=== PATIENT | male | born 1945 | race Caucasian/White ===

== ENCOUNTER 2022-12-07 19:57 | Inpatient (IN) | payer MEDICARE, SELFPAY ==
[2022-12-07 19:59] VITALS: BP 141/80; PULSE 105; RESP 20; TEMP 36.6; O2SAT 86; BMI 30.4
[2022-12-07 20:12] VITALS: BP 141/80; PULSE 100; RESP 27; O2SAT 93
--- NOTE | 2022-12-07 20:16 | CTR_ITS ---
PROCEDURE INFORMATION: Exam: CT Head Without Contrast Exam date and time: 12/07/2022 9:50 PM Age: 77 years old Clinical indication: Injury or trauma; Fall; Blunt trauma (contusions or hematomas); Additional info: Fall, head injury TECHNIQUE: Imaging protocol: Computed tomography of the head without contrast. Radiation optimization: All CT scans at this facility use at least one of these dose optimization techniques: automated exposure control; mA and/or kV adjustment per patient size (includes targeted exams where dose is matched to clinical indication); or iterative reconstruction. REPORTING DATA: Count of CT and Cardiac NM exams in prior 12 months: This patient has received 0 known CTs and 0 known cardiac nuclear medicine studies in the 12 months prior to the current study. COMPARISON: No relevant prior studies available. RADIATION DOSE METRICS: Total DLP (mGy-cm): 1237 FINDINGS: Brain: Normal. No hemorrhage. Unremarkable white matter. No mass effect. Cerebral ventricles: No ventriculomegaly. Paranasal sinuses: Visualized sinuses are unremarkable. No fluid levels. Mastoid air cells: Visualized mastoid air cells are well aerated. Bones/joints: Unremarkable. No acute fracture. Soft tissues: Unremarkable. CT/CT head wo con* [id number] IMPRESSION: No acute intracranial abnormality.
--- NOTE | 2022-12-07 20:16 | CTR_ITS ---
PROCEDURE INFORMATION: Exam: CT Cervical Spine Without Contrast Exam date and time: 12/07/2022 9:50 PM Age: 77 years old Clinical indication: Injury or trauma; Fall; Blunt trauma TECHNIQUE: Imaging protocol: Computed tomography of the cervical spine without contrast. Radiation optimization: All CT scans at this facility use at least one of these dose optimization techniques: automated exposure control; mA and/or kV adjustment per patient size (includes targeted exams where dose is matched to clinical indication); or iterative reconstruction. REPORTING DATA: Count of CT and Cardiac NM exams in prior 12 months: This patient has received 0 known CTs and 0 known cardiac nuclear medicine studies in the 12 months prior to the current study. COMPARISON: CR (CHEST, ) 12/07/2022 8:34 PM RADIATION DOSE METRICS: Total DLP (mGy-cm): 279 FINDINGS: Bones/joints: No acute fracture. Normal alignment. No significant disc bulge or herniation. Multilevel degenerative changes are seen in the cervical spine, without significant spinal canal stenosis. Multilevel foraminal stenosis is present in the cervical spine. Lungs: Lung apices are normal. Soft tissues: Unremarkable. CT/CT cervical spin wo con* [id number] IMPRESSION: No acute findings.
--- NOTE | 2022-12-07 20:16 | ED_ITS ---
HPI - General Adult General: Chief complaint: General Medical Stated complaint: weakness, hypotension Time Seen by Provider: 12/07/22 20:07 History of Present Illness: 77-year-old male presents emergency department via air EMS with complaints of increased weakness and fatigue and accidental fall approximately 2 hours prior to arrival here in the emergency department. EMS personnel state that the patient does have multiple abrasions after he fell he did hit his head but there was no loss of consciousness reported. Family members who are present here in the emergency department with him states that he has been falling almost daily for the previous 3 days. The patient does have a history of malignant melanoma resection approximately 5 weeks ago at [facility]. He states that the melanoma was on his left lower back area. He denies neck pain but does complain of a 4 out of 10 headache. The patient has multiple abrasions to his forehead, lower lip, left forearm, and bilateral knees. He denies numbness or tingling to the extremities. He states nothing seems to make his headache better and nothing seems to make it worse. He denies nausea, or vomiting. Associated symptoms: Reports headache(s) and malaise Review of Systems General: Reports: 10 or more systems reviewed and unremarkable except in HPI and below Const: Reports: fatigue and malaise Skin/Breast: Reports: other (Multiple abrasions to his lower legs, forehead) Neuro: Reports: headache(s) Physical Exam Const: COMMON NORMALS: no acute distress, patient oriented x3 and alert HENMT: COMMON NORMALS: normocephalic and moist oral mucous membranes HEAD & SCALP: normocephalic and abrasion (Abrasions to the forehead, lower lip,) Eye: COMMON NORMALS: Equal, round and reactive pupils present, EOMs intact bilaterally and normal visual cristina by confrontation PUPIL: Yes Equal, round and reactive pupils present Neck/C-Spine: COMMON NORMALS: full ROM, no lymphadenopathy, supple and no m eningeal signs Chest: COMMONS NORMALS: normal inspection of the chest and normal palpation of entire chest wall Resp: COMMON NORMALS: normal respiratory effort and clear to auscultation bilaterally AUSCULTATION: clear to auscultation bilaterally Cardio: COMMON NORMALS: regular rate, S1 normal heart sound present, S2 normal heart sound present and Peripheral pulses 2+ throughout RATE: regular rate HEART SOUNDS: S1 normal heart sound present and S2 normal heart sound present PERIPHERAL PULSES: Peripheral pulses 2+ throughout GI: COMMON NORMALS: Normal to inspection, nondistended, normoactive bowel sounds present, Soft to palpation and non-tender PALPATION: Yes Soft to palpation Back/Pelvis: THORACIC SPINE/UPPER BACK: Yes normal to inspection and Yes thoracic ROM normal OTHER: Left lower back with dressing in place postoperative healing wound noted Extremity: RIGHT LOWER EXTREMITY: Yes lower leg Right lower leg: Yes inspection (Multiple abrasions to the anterior aspect of the right lower leg) LEFT LOWER EXTREMITY: Yes lower leg (Multiple abrasions to the left lower leg anterior aspect) Neuro: JAN COMA SCALE: document GCS findings Jan coma scale eye opening: Spontaneous Jan coma scale verbal response: Orientated [place] coma scale motor response: Obey commands [place] coma scale total score: 15 COMMON NORMALS: patient oriented x3 SENSORIUM/ORIENTATION: Yes alert MENINGEAL SIGNS: Yes no meningeal signs CRANIAL NERVES: Yes CN normal except as noted Skin: TRAUMA: abrasion (Anterior lower leg both right and left with multiple superficial abrasions,) Course Reevaluation(s): Reevaluation #1: Given the patient's elevated white blood cell count and lactic acid level we will request admission to the hospital physician for additional evaluation treatment and care. I did review patient's radiographic examination with the patient and the family and also discussed need for admission to the hospital for additional evaluation and treatment. Both the patient and the family did appear to be in agreement. Time: 23:06 Vital Signs: Vital signs: Vital Signs Temperature 97.9 F 12/07/22 19:59 Pulse Rate 93 12/07/22 20:47 Respiratory Rate 15 12/07/22 20:47 Blood Pressure 121/70 12/07/22 20:47 Pulse Oximetry 92 12/07/22 20:47 Oxygen Delivery Me thod Nasal Cannula 12/07/22 20:47 Oxygen Flow Rate 3 12/07/22 20:47 MDM - General Adult Medical Decision Making Physical exam completed and documented, I will obtain a CBC, CMP, cardiac enzymes as well as an EKG. Given his increased recent falls and his history of malignant melanoma I am concerned for metastasis we will obtain a CT scan of his head and due to the recent fall with trauma to his forehead and complaints of a headache we will obtain a CT cervical spine. My concern is that the patient may have metastatic disease versus a intracranial hemorrhage secondary to trauma. Differential Diagnosis Metastatic disease, intracranial hemorrhage, electrolyte abnormality, Medical Records I reviewed the patient's medical records. Lab Data I reviewed the patient's lab results. 12/07/22 19:00 12/07/22 19:00 Radiology Impressions Cervical Spine CT 12/07/22 20:16 IMPRESSION: No acute findings. Chest X-Ray 12/07/22:16 IMPRESSION: Mild asymmetric right lower lung zone opacification may represent atelectasis or scarring. Could also represent contusion or possibly developing pneumonia. Head CT 12/07/22:16 IMPRESSION: No acute intracranial abnormality. Laboratory Results WBC 40.48 10^3/uL (3.29-11.43) H* 12/07/22 19:00 RBC 4.37 10^6/uL (3.85-5.65) 12/07/22 19:00 Hgb 13.50 g/dL (11.27-16.99) 12/07/22 19:00 Hct 41.9 % (37-53) 12/07/22 19:00 MCV 95.9 fl (82-101) 12/07/22 19:00 MCH 30.9 pg (27-33) 12/07/22 19:00 MCHC 32.2 g/dL (30-55) 12/07/22 19:00 RDW 12.4 % (12.1-15.1) 12/07/22 19:00 Plt Count 46 10^3/cmm (157-399) L 12/07/22 19:00 MPV 11.5 fL (7.4-10.4) H 12/07/22 19:00 Lymph % (Auto) Not Reportable 12/07/22 19:00 [place] % (Auto) Not Reportable 12/07/22 19:00 Lymph # (Auto) Not Reportable 12/07/22 19:00 [place] # (Auto) Not Reportable 12/07/22 19:00 Total Counted 100 (0-100) 12/07/22 19:00 Atypical Lymphs % Not Reportable 12/07/22 19:00 Segmented Neutrophils 33 % 12/07/22 19:00 Abs Segm Neuts (Man) 13.4 10/cmm (1.6-7.1) H 12/07/22 19:00 Band Neutrophils Not Reportable 12/07/22 19:00 Absolute Lymphocytes 25.9 10^3/cmm (1.2-3.4) H 12/07/22 19:00 Lymphocytes (Manual) 63 % 12/07/22 19:00 Monocytes (Manual) 0.0 % 12/07/22 19:00 Absolute Monocytes 0.0 10^3/cmm (0.1-0.6) L 12/07/22 19:00 Eosinophils (Manual) 0 % 12/07/22 19:00 Absolute Eosinophils 0.0 10^3/cmm (0.0-0.7) 12/07/22 19:00 Basophils (Manual) 0.0 % 12/07/22 19:00 Absolute Basophils 0.0 10^3/cmm (0.0-0.2) 12/07/22 19:00 Myelocytes 2.0 % 12/07/22 19:00 Promyelocytes 1.0 % 12/07/22 19:00 Nucleated RBCs 1.0 /100WBC (0-1) 12/07/22 19:00 Smudge Cells 2+ H 12/07/22 19:00 Platelet Estimate Decreased (Normal) 12/07/22 19:00 PT 14.30 SECONDS (12.1-14.9) 12/07/22 19:00 INR 1.08 (0.8-1.2) 12/07/22 19:00 APTT 25.0 SECONDS (23.9-36.7) 12/07/22 19:00 Sodium 133 mmol/L (136-145) L 12/07/22 19:00 Potassium 4.1 mmol/L (3.5-5.1) 12/07/22 19:00 Chloride 90 mmol/L (98-107) L 12/07/22 19:00 Carbon Dioxide 17 mmol/L (22-29) L 12/07/22 19:00 Anion Gap 30.1 (5-19) H 12/07/22 19:00 BUN 30 mg/dL (8-23) H 12/07/22 19:00 Creatinine 1.3 mg/dL (0.7-1.2) H 12/07/22 19:00 GFR Calculation Not Reportable 12/07/22 19:00 Glucose 196 mg/dL (65-115) H 12/07/22 19:00 POC Glucose 133 mg/dL (70-110) H 12/07/22 20:43 Calculated Osmolality 288 mOsm/kg (285-295) 12/07/22 19:00 Lactic Acid 5.1 mmol/L (0.5-2.2) H* 12/07/22 20:05 Calcium 11.5 mg/dL (8.5-10.5) H 12/07/22 19:00 Magnesium 3.1 mg/dL (1.7-2.3) H 12/07/22 19:00 Total Bilirubin 0.5 mg/dL (0.15-1.2) 12/07/22 19:00 AST 81 U/L (0-40) H 12/07/22 19:00 ALT 26 U/L (0-41) 12/07/22 19:00 Alkaline Phosphatase 276 U/L (40-130) H 12/07/22 19:00 Troponin T Baseline 256 ng/L (0-15) H* 12/07/22 19:00 Troponin T 120 Minute 211.3 ng/L (0-15) H 12/07/22 22:31 Delta Troponin T -44.7 ABS# (0-10) L 12/07/22 22:31 Total Protein 6.4 g/dL (6.6-8.7) L 12/07/22 19:00 Albumin 2.9 g/dL (3.5-5.2) L 12/07/22 19:00 Globulin 3.5 g/dL (1.3-4.6) 12/07/22 19:00 Urine Color Yellow (Yellow) 12/07/22 22:10 Urine Appearance Sl hazy (CLEAR) A 12/07/22 22:10 Urine pH 5 (5-7) 12/07/22 22:10 Ur Specific [place] 1.020 (1.005-1.030) 12/07/22 22:10 Urine Protein 1+ (Negative) H 12/07/22 22:10 Urine Glucose (UA) Norm (Normal) 12/07/22 22:10 Urine Ketones 1+ (Negative) H 12/07/22 22:10 Urine Blood 3+ (Negative) H 12/07/22 22:10 Urine Nitrate Negative (Negative) 12/07/22 22:10 Urine Bilirubin Neg (Negative) 12/07/22 22:10 Urine Urobilinogen Neg mg/dL (Negative) 12/07/22 22:10 Ur Leukocyte Esterase Negative (Negative) 12/07/22 22:10 Urine RBC 5-10 /hpf (0-2) H 12/07/22 22:10 Urine WBC 0-4 /hpf (0-5) H 12/07/22 22:10 Ur Squamous Epith Cells None /hpf (0-5) 12/07/22 22:10 Ur Transition Epith Cell 0-4 /hpf 12/07/22 22:10 Amorphous Sediment 1+ /hpf 12/07/22 22:10 Urine Bacteria Trace /hpf (NONE) 12/07/22 22:10 Hyaline Casts 0-4 /lpf H 12/07/22 22:10 Urine Mucus 2+ /hpf 12/07/22 22:10 Urine Opiates Screen Negative ng/mL (Negative) 12/07/22 22:10 Ur Barbiturates Screen Negative ng/mL (Negative) 12/07/22 22:10 Ur Phencyclidine Scrn Negative ng/mL (Negative) 12/07/22 22:10 Ur Amphetamines Screen Negative ng/mL (Negative) 12/07/22 22:10 U Benzodiazepines Scrn Negative ng/mL (Negative) 12/07/22 22:10 Urine Cocaine Screen Negative ng/mL (Negative) 12/07/22 22:10 U Marijuana (THC) Screen Negative ng/mL (Negative) 12/07/22 22:10 All radiology interpretation(s) finalized by discharge EKG Data Twelve-lead EKG was obtained at 2219 and reviewed at 2221 which demonstrated sinus rhythm with occasional PAC. There is no ST elevation or depression to demonstrate acute ischemia or infarction at present. Ventricular rate is 96, ME interval is 148, QRS duration is 94, QT 369, QTc 423.: Computer generated interpretation: Cervical Spine CT 12/07/22 20:16 IMPRESSION: No acute findings. Chest X-Ray 12/07/22 20:16 IMPRESSION: Mild asymmetric right lower lung zone opacification may represent atelectasis or scarring. Could also represent contusion or possibly developing pneumonia. Head CT 12/07/22 20:16 IMPRESSION: No acute intracranial abnormality. Critical Care Time Critical Care Time: Critical Care Time: Yes Total Critical Care Time: 90 Attestation: This case had a high probability of a clinically significant, sudden, or life threatening deterioration of this patient's condition which required my full and direct attention, intervention and personal management. 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
--- NOTE | 2022-12-07 20:16 | XRR_ITS ---
PROCEDURE INFORMATION: Exam: XR Chest Exam date and time: 12/07/2022 8:34 PM Age: 77 years old Clinical indication: Other: Weakness; Additional info: Weakness/fall TECHNIQUE: Imaging protocol: Radiologic exam of the chest. Views: 1 view. COMPARISON: No relevant prior studies available. FINDINGS: Lungs: Mild linear atelectasis versus scarring in the left lung base. Subtle asymmetric patchy linear right lower lung zone opacification. Pleural spaces: No substantial pleural effusion or pneumothorax. Heart/Mediastinum: Unremarkable. No cardiomegaly. Bones/joints: Mild degenerative changes along the spine and shoulders. XR/XR chest 1V portable [id number] IMPRESSION: Mild asymmetric right lower lung zone opacification may represent atelectasis or scarring. Could also represent contusion or possibly developing pneumonia.
[2022-12-07 20:25] VITALS: BP 130/69; PULSE 96; RESP 20; O2SAT 92
[2022-12-07] MEDS: neomycin-poly-bacitracin oint 28 gm 1 APPLIC TOPICAL (20:27)
[2022-12-07 20:39] LABS: Hematocrit 41.9 % (37-53); Mean Corpuscular HGB Conc 32.2 g/dL (30-55); Mean Corpuscular Hemoglobin 30.9 pg (27-33); Mean Corpuscular Volume 95.9 fl (82-101); Mean Platelet Volume 11.5 fL (7.4-10.4); Platelet Count 46 10^3/cmm (157-399); Red Blood Count 4.37 10^6/uL (3.85-5.65); Red Cell Distribution Width 12.4 % (12.1-15.1)
[2022-12-07 20:43] LABS: INR 1.08 (0.8-1.2)
[2022-12-07 20:47] VITALS: BP 121/70; PULSE 93; RESP 15; O2SAT 92
[2022-12-07 20:47] LABS: Glucose Point of Care 133 mg/dL (70-110)
[2022-12-07 20:59] LABS: Alanine Aminotransferase 26 U/L (0-41); Albumin Level 2.9 g/dL (3.5-5.2); Alkaline Phosphatase 276 U/L (40-130); Blood Urea Nitrogen 30 mg/dL (8-23); Calcium 11.5 mg/dL (8.5-10.5); Carbon Dioxide 17 mmol/L (22-29); Chloride 90 mmol/L (98-107); Globulin 3.5 g/dL (1.3-4.6); Glucose 196 mg/dL (65-115); Magnesium 3.1 mg/dL (1.7-2.3); Osmolality Calculated 288 mOsm/kg (285-295); Sodium 133 mmol/L (136-145); Total Bilirubin 0.5 mg/dL (0.15-1.2); Total Protein 6.4 g/dL (6.6-8.7)
[2022-12-07 21:00] LABS: Troponin(5th) Baseline 256 ng/L (0-15)
[2022-12-07 21:02] LABS: Anion Gap 30.1 (5-19); Aspartate Amino Transferase 81 U/L (0-40); Potassium 4.1 mmol/L (3.5-5.1)
[2022-12-07 21:50] LABS: Slide Review Slide Review Perform
[2022-12-07 21:52] LABS: Platelet Estimate Decreased (Normal); Total Cells Counted 100 (0-100); White Blood Count 40.48 10^3/uL (3.29-11.43)
[2022-12-07 21:59] LABS: Absolute Segmented Neutrophil 13.4 10/cmm (1.6-7.1); Eosinophils 0 %; Lymphocytes 63 %; Lymphocytes Absolute 25.9 10^3/cmm (1.2-3.4); Segmented Neutrophils 33 %
[2022-12-07 22:01] LABS: Smudge Cells 2+
--- NOTE | 2022-12-07 22:11 | ECG_ITS ---
[facility] Test Date: 2022-12-07 Pat Name: Esteban Villalobos Department: Room: Gender: Male [employer]: : 1945 Requested By: Milad Smith Order Number: [id number] Lowell MD: Brittanie Carrizales M.D. Measurements Intervals [place] Rate: 94 P: 1 LA: 137 QRS: 73 QRSD: 110 T: 68 QT: 371 QTc: 465 Interpretive Statements SINUS RHYTHM WITH MARKED SINUS ARRHYTHMIA No previous ECG available for comparison Electronically Signed On 12-08-2022 19:34:04 CDT by Brittanie Carrizales M.D. [id number] f
--- NOTE | 2022-12-07 22:19 | ECG_ITS ---
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 Measurements Intervals [place] Rate: 96 P: 26 DE: 148 QRS: 78 QRSD: 94 T: 71 QT: 369 QTc: 467 Interpretive Statements SINUS RHYTHM WITH OCCASIONAL SUPRAVENTRICULAR PREMATURE COMPLEXES Compared to ECG 12/07/2022 21:01:12 Sinus arrhythmia no longer present Electronically Signed On 12-08-2022 19:42:17 CDT by Brtitanie Carrizales M.D. [id number]
[2022-12-07 22:26] LABS: Add Urine Microscopic? YES; Amorphous Sediment Urine 1+ /hpf; Bacteria Urine TRACE /hpf; Bilirubin Urine Neg (Negative); Blood Urine 3+ (Negative); Glucose Urine UA Norm (Normal); Hyaline Casts Urine 0-4 /lpf; Ketones Urine 1+ (Negative); Leukocyte Esterase Urine Negative (Negative); Mucus Urine 2+ /hpf; Nitrate Urine Negative (Negative); Protein Urine 1+ (Negative); Transitional Epi Cells Urine 0-4 /hpf; Urine Appearance SL Hazy (CLEAR); Urine Color Yellow (Yellow); Urobilinogen Urine Neg (Negative); WBC Urine 0-4 /hpf (0-5); pH Urine 5 (5-7)
[2022-12-07 22:27] LABS: Add Urine Culture? No
[2022-12-07 22:30] LABS: Amphetamines Screen Urine Negative (Negative); Barbiturates Screen Urine Negative (Negative); Benzodiazepines Screen Urine Negative (Negative); Cocaine Screen Urine Negative (Negative); Opiate Screen Urine Negative (Negative); PCP Screen Urine Negative (Negative); THC Screen Urine Negative (Negative)
[2022-12-07 22:41] LABS: Lactic Sepsis W/Reflex 5.1 mmol/L (0.5-2.2)
[2022-12-07 23:07] LABS: Troponin 5 2HR 211.3 ng/L (0-15)
[2022-12-07 23:26] LABS: Prolactin 15.45 ng/mL (4.0-15.2)
[2022-12-07] MEDS: sodium chloride 0.9% 1,000 ML 999 ML IV (23:36)
[2022-12-07] MEDS: piperacillin-tazobactam 3.375 GM in sodium chloride 0.9% (plus) 50 ML IV (23:37)
[2022-12-07 23:38] VITALS: BP 135/99; PULSE 103; RESP 24; O2SAT 93
[2022-12-08] VITALS (99 sets, daily range): BP systolic 107–151; BP diastolic 65–87; PULSE 98–116; RESP 15–54; TEMP 36.9–37.2; O2SAT 81–96
[2022-12-08 00:03] LABS: Reflex Lactate Order REFLEX LACTIC ORDERD
--- NOTE | 2022-12-08 01:59 | P.HP_ITS ---
Providers/Chief Complaint Admitting Physician: Shirlene Lewis MD Primary Care Provider: Leobardo Blanco Chief Complaint: weakness, hypotension History of Present Illness Esteban Villalobos is a 77 year old male with history of hypertension left lower lateral back melanoma s/p surgery 1 week ago was brought in by family for fall. He has a history of similar mechanical fall 1 week ago. He denies any dizziness chest pain cold cough shortness of breath bowel or urinary complaints prior to fall.. He reports he was working in the front yard and suddenly lost balance and fell. He did not hit his head. He could not get up and tried to crawl back into the house during which he received few lacerations on bilateral knees. He denies feeling dizzy or abnormal pre or post episode. He recently had excisional surgery for melanoma 1 week ago and was given Percocet for pain control. He reports Percocet made him feel nauseous and loss of appetite, also he has not been drinking enough water recently. He was having nonproductive cough for last few days but no fever or cold. Review of Systems Narrative: As per HPI Medications/Allergies Home Medications Medication Instructions Recorded Confirmed Last Taken Type aspirin 81 mg tablet,delayed mg 12/07/22 Unknown History release losartan 12/07/22 Unknown History Allergies Allergy/AdvReac Type Severity Reaction Status Date / Time hydrocodone Allergy Unknown Verified 12/07/22 20:07 Vitals/I&O/Wt Last Vital Signs Temp 97.9 F 12/07/22 19:59 Pulse 104 H 12/08/22 00:21 Resp 24 H 12/08/22 00:21 BP 107/67 12/08/22 00:21 Pulse Ox 93 12/08/22 00:21 O2 Del Method Nasal Cannula 12/08/22 01:05 O2 Flow Rate 3 12/08/22 00:21 12/07/22 12/07/22 12/08/22 14:59 22:59 06:59 Intake Total 1050 / 1050 Balance 1050 / 1050 Weight last 48 hrs Weight 96.162 kg Physical Exam Narrative: He is alert awake oriented x3 pleasant and cooperative not in acute distress Chest bilaterally diffuse wheezing present no rhonchi or crackles Cardiovascular normal heart sounds no murmur Abdomen soft nontender nondistended normal bowel sounds Extremities 1+ pitting bilateral lower extremity edema present. Skin superficial laceration seen some bilaterally, surgical site on the left lower back seen, 2.5 x 2.5 cm ulcer present packed with gauze. No active signs of infection or drainage. Data 12/08/22 02:18 12/08/22 02:18 Micro: Microbiology 12/07/22 22:36 Blood Culture - Preliminary Blood SPECIMEN COLLECTED 12/07/22 22:31 Blood Culture - Preliminary Blood SPECIMEN COLLECTED CXR: Radiologist's impression: 54 year old female morbidly obese with history of severe asthma, possible sleep apnea, bilateral lower extremity lymphedema presented with complaint of shortness of breath chest pain and cough productive of dark green sputum mixed with blood. Other CT: My impression: No acute findings CT Head: Radiologist's impression: No acute intracranial findings EKG 1: My Interpretation: Normal sinus rhythm No acute ST-T changes EKG 2: My Interpretation: Sinus arrhythmia but no acute ST-T changes A&P Assessment and plan (1) Fall: (2) Acute renal failure: (3) Hyponatremia: (4) Generalized weakness: (5) Acute bronchitis: (6) Sepsis: (7) Elevated troponin: Plan 77 year old male with history of hypertension left lower lateral back melanoma s/p surgery 1 week ago was brought in by family for mechanical fall and found to have hyponatremia with sodium of 133 leukocytosis with left shift 40 lactic acid 5.1 acute renal failure and elevated troponins and hypoxia Fall secondary to generalized weakness and dehydration We will do IV fluids at normal saline 75 mll per hour PT eval in a.m. hypoxia and wheezing secondary to acute bronchitis secondary to flulike symptoms DuoNebs every 8 hours Continue supplemental oxygen to keep saturation more than 90 IV ceftriaxone 1 g daily IV azithromycin 500 mg daily IV fluids normal saline at 75 mL/h elevated troponins likely secondary to stress, trending down, will monitor for now Check 2D echo in a.m. Hyponatremia acute renal failure secondary to dehydration we will continue with IV fluids Resume losartan 50 mg daily for hypertension Resume p.o. aspirin 81 mg daily IV Pepcid 20 mg twice a day for stress ulcer prophylaxis Subcutaneous Lovenox 40 mg daily for DVT prophylaxis He is full code as per discussion with the patient and family. Attestations Medical Necessity Statement*: He needs more than 2 days of continued hospitalization for management of brian kocytosis of unknown etiology generalized weakness and fall. Time Spent in Patient Care: 30 minutes Coding Level of Care Code Acute Code for Chg Fwd Diagnoses Fall W19.XXXA Acute renal failure N17.9 Hyponatremia E87.1 Generalized weakness R53.1 Acute bronchitis J20.9 Sepsis A41.9 Elevated troponin R79.89 Time Spent (min) 30
--- NOTE | 2022-12-08 02:11 | ECG_ITS ---
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 Measurements Intervals [place] Rate: 101 P: 0 [place]: 0 QRS: 82 QRSD: 94 T: 36 QT: 343 QTc: 446 Interpretive Statements Multifocal atrial tachycardia ABNORMAL RHYTHM ECG Compared to ECG 12/07/2022 22:19:30 Sinus rhythm no longer present Electronically Signed On 12-08-2022 19:43:46 CDT by Brittanie Carrizales M.D. [id number]
[2022-12-08] MEDS: famotidine 20 mg/2 mL INJ IVP ×2 (02:43→14:50)
[2022-12-08] MEDS: enoxaparin 40 mg/0.4 mL Syringe SUBCUT (02:44)
[2022-12-08] MEDS: cefTRIAXone 1,000 MG in sodium chloride 0.9% (plus) 50 ML 100 MG IV (02:44)
[2022-12-08] MEDS: azithromycin 500 MG in sodium chloride 0.9% 250 ML 250 MG IV (02:44)
[2022-12-08] MEDS: sodium chloride 0.9% 1,000 ML 75 ML IV ×2 (02:44→17:45)
[2022-12-08 02:46] LABS: Basophils # 0.1 10^3/uL (0.0-0.1); Basophils % 0.3 %; Eosinophils % 0.1 %; Lymphocytes # 30.2 10^3/uL (0.8-4.8); Lymphocytes % 83.6 %; Mean Corpuscular HGB Conc 32.9 g/dL (30-55); Mean Corpuscular Hemoglobin 30.9 pg (27-33); Mean Corpuscular Volume 94.1 fl (82-101); Mean Platelet Volume 10.4 fL (7.4-10.4); Monocytes # 0.5 10^3/uL (0.2-0.9); Monocytes % 1.3 %; Neutrophils # 4.54 10^3/uL (1.8-7.7); Neutrophils % 12.6 %; Nucleated Red Blood Cells # 0.2 /100WBC; Nucleated Red Blood Cells % 0.4 %; Platelet Count 38 10^3/cmm (157-399); Red Blood Count 4.04 10^6/uL (3.85-5.65); Red Cell Distribution Width 12.4 % (12.1-15.1)
[2022-12-08 03:22] LABS: Alanine Aminotransferase 29 U/L (0-41); Albumin Level 2.6 g/dL (3.5-5.2); Alkaline Phosphatase 282 U/L (40-130); Anion Gap 16.1 (5-19); Aspartate Amino Transferase 118 U/L (0-40); Blood Urea Nitrogen 30 mg/dL (8-23); Calcium 10.7 mg/dL (8.5-10.5); Carbon Dioxide 27 mmol/L (22-29); Chloride 97 mmol/L (98-107); Globulin 3.1 g/dL (1.3-4.6); Glucose 130 mg/dL (65-115); Magnesium 2.7 mg/dL (1.7-2.3); NT Pro B Type Natriuretic Pept 575 pg/mL (0-450); Osmolality Calculated 290 mOsm/kg (285-295); Phosphorus 4.8 mg/dL (2.5-4.5); Potassium 4.1 mmol/L (3.5-5.1); Sodium 136 mmol/L (136-145); Total Bilirubin 0.4 mg/dL (0.15-1.2); Total Protein 5.7 g/dL (6.6-8.7)
[2022-12-08 03:26] LABS: Troponin 5 6HR 211.9 ng/L (0-15)
--- NOTE | 2022-12-08 08:43 | USCV_ITS ---
Esteban Villalobos Age: 77 Gender: M : 1945 Exam Date: 12/08/2022 09:21 Ordering Phys: Stone Robins MD Technologist: MABEL Exam Location: [facility] [place] Indication: NSTEMI, CHF BP: 152 / 87 HR: 107 Rhythm: Sinus Technical Quality: Adequate MEASUREMENTS (Male / Female) Normal Values 2D ECHO LVOT Diameter 2.0 cm LV Ejection Fraction MOD 2C 54.8 % LV Ejection Fraction 2C AL 53.5 % LA Diameter 3.0 cm LA Width 3.3 cm LA Height 4.1 cm RA Width 2.6 cm RA Height 3.5 cm Aorta at Sinotubular Diameter 2.6 cm IVC Diameter 1.5 cm M-MODE Aortic Annulus Diameter 3.2 cm LA Ao Ratio MM 0.9 MV E Point Septal Separation 0.9 cm DOPPLER AV Peak Velocity 137.0 cm/s LVOT Peak Velocity 108.0 cm/s AV Area Cont Eq vti 2.7 cm squared AV Area Cont Eq pk 2.5 cm squared MV Peak Velocity 104.0 cm/s MV Area PHT 3.7 cm squared Mitral E to A Ratio 0.8 MV E' Velocity 38.5 cm/s Mitral E to MV E' Ratio 8.8 Mitral E to LV E' Lateral Ratio 8.9 Mitral E to LV E' Septal Ratio 8.8 TR Peak Velocity 151.0 cm/s TR Peak Gradient 9.1 mmHg TR Mean Velocity 107.0 cm/s TR Mean Gradient 5.4 mmHg TR Velocity Time Integral 29.0 cm TV Peak E Velocity 30.0 cm/s Right Atrial Pressure 3.0 mmHg Pulmonary Artery Systolic Pressu 12.1 mmHg PV Peak Velocity 152.0 cm/s RV Acceleration Time 0.1 s RV Ejection Time 0.2 s RV AcT/ET 0.7 FINDINGS Left Ventricle Normal left ventricular size and systolic function, EF 59 %. No regional wall motion abnormalities. Grade I/IV diastolic dysfunction (abnormal relaxation filling pattern), normal to mildly elevated filling pressures. Right Ventricle The right ventricle is normal in size and function. Right Atrium The right atrium is normal in size. Left Atrium Mildly increased left atrial size. Mitral Valve No gross abnormalities noted Aortic Valve Thickened aortic valve. Trace aortic valve regurgitation. Tricuspid Valve Trace tricuspid valve regurgitation. Estimated pulmonary artery peak systolic pressure within normal limit Pulmonic Valve Pulmonic valve not well visualized. Pericardium No pericardial effusion. Aorta Normal ascending aorta dimension. IVC Inferior vena cava not visualized. CONCLUSIONS Normal left ventricular size and systolic function, EF 59 %. No regional wall motion abnormalities. Grade I/IV diastolic dysfunction (abnormal relaxation filling pattern), normal to mildly elevated filling pressures. Thickened aortic valve. Trace aortic valve regurgitation. Trace tricuspid valve regurgitation. Estimated pulmonary artery peak systolic pressure within normal limit There is no pericardial effusion. There are no intracardiac masses. No previous study is available for comparison. Dr Brittanie Carrizales MD FAC (Electronically Signed) Final Date: 08 December 2022 11:13 S
--- NOTE | 2022-12-08 09:01 | P.PN_ITS ---
Subjective Subjective: Admitted overnight. H&P and labs appreciated. Seen with family at bedside. This is a 77-year-old gentleman with past medical history of hypertension, CLL on expectant treatment who recently underwent wide excision of melanoma from his back at [facility] within the last 2 weeks presents to the ER after sustaining a fall. As per the patient he has been having almost daily falls for last 1 week. Falls were not preceded or followed by any aura, denies any nausea vomiting, chest pressure, chest pain along the symptoms, any seizure-like activity. Denies having any similar episodes in the past. Yesterday he was mowing his lawn when he thinks he tripped. On examination patient is laying comfortably in bed, currently on 6 L saturating 90%, tachycardic, complaining of mild shortness of breath. Denies any nausea vomiting, headache. Blood work appreciated for a white count 26,000, stable hemoglobin, platelet count 38,000, CMP showing creatinine of 1.1, sodium of 136, calcium of 10.7, phosphorus 4.8, magnesium of 2.7, troponin baseline at 256 with a delta of -44 and 6 hours Vitals/I&O/Wt Last Vital Signs Temp 98.9 F 12/08/22 04:00 Pulse 104 H 12/08/22 08:41 Resp 16 12/08/22 08:41 BP 117/77 12/08/22 04:00 Pulse Ox 91 12/08/22 08:41 O2 Del Method Nasal Cannula 12/08/22 08:41 O2 Flow Rate 6 12/08/22 08:41 12/07/22 12/08/22 12/08/22 22:59 06:59 14:59 Intake Total 1350 / 1350 Balance 1350 / 1350 Weight last 48 hrs Weight 96.162 kg Physical Exam Narrative: General: No acute distress, AO x3, drowsy, NC oxygen supplementation HEENT: PERRLA, pupils bilaterally equal and reactive, old traumatic dried blood on lower lip Chest: Bilateral normal vesicular breath sounds all over lung cristina with coarse crackles bilaterally in lower zone CVS: S1-S2 regular, no murmurs, no tachycardia, no gallops, no rubs Abdomen: Soft, nontender, no organomegaly, bowel sounds present, morbidly obese Neuro: No focal deficits, no facial deformity, AO x3, power 5/5 in all limbs lateral normal vesicular breath sounds over lung cristina Skin: OTHER: Data 12/08/22 02:18 12/08/22 02:18 Micro: Microbiology 12/07/22 22:36 Blood Culture - Preliminary Blood SPECIMEN COLLECTED 12/07/22 22:31 Blood Culture - Preliminary Blood SPECIMEN COLLECTED A&P Assessment and plan (1) Syncope and collapse: (2) Acute kidney insufficiency: (3) Hyponatremia: (4) Sepsis: (5) Elevated troponin: (6) Pulmonary embolism: (7) CLL (chronic lymphocytic leukemia): (8) Goals of care, counseling/discussion: (9) Hypertension: Plan 77-year-old gentleman with past medical history of CLL, excision of melanoma of back presents to the hospital with recurrent falls secondary to syncope and collapse over last 1 week. Syncope and collapse: Patient is tachycardic, on new oxygen supplementation going up to 6 L, positive troponins with a negative delta on admission. Check D-dimer. For now we will hold off on CTA until his D-dimer is elevated gi aixa resolving KATY. Empirically start on full dose Lovenox 1 mg/kg body weight every 12 hourly. Orthostatic blood pressures. PT evaluation. Hypoxia: Most likely in setting of a possible PE. Pneumonia is likely as well. Check respiratory viral panel, sputum culture. Antibiotic as below. Sepsis: Present on admission. Ruled in with tachycardia, leukocytosis, target organ dysfunction with KATY and hyponatremia. Follow-up blood culture, check MRSA swab. For now continue with IV ceftriaxone and azithromycin. Wound care as per outpatient directions. Continue with triple antibiotic ointment. KATY: Resolving. Most likely in setting of dehydration along with losartan at home dose. Medical reconstruction done for nephrotoxic drugs. Hold off on losartan for now. Monitor BMP daily. High anion gap metabolic acidosis/hyponatremia: Most likely in setting of KATY. Resolved. Monitor daily. Elevated troponin: Await echocardiogram results. Already on full dose Lovenox for possible PE. Check A1c, lipid panel. We will plan for further treatment as per the results. CLL: On review of labs from outpatient. It seems patient's baseline white count is around 19,000. Currently 36,000. Continue to monitor. Will ask patient to follow-up with his outpatient oncologist. Thrombocytopenia: Most likely in setting of baseline CLL. Patient is on full dose Lovenox for high concerns for PE causing syncope and collapse. We will have to monitor closely for any bleeding diathesis. CODE STATUS: Discussed in detail with patient at bedside. Daughters will be the DPOA. For now he would want to have chest compressions if needed but does not want ventilator. Changed to limited resuscitation. Full dose Lovenox will suffice as DVT prophylaxis Famotidine for PUD prophylaxis Regular diet Attestations Medical Necessity Statement*: Requires further hospitalization for management and further evaluation of syncop e and collapse, hypoxia with concerns for sepsis, resolving KATY with concerns for pulmonary embolism Coding Level of Care Code 32692 High MDM includes number and complexity of problems actively addressed during encounter, amount and/or complexity of data reviewed/ordered (Reviewing outpatient labs for last 6 months, ordering tests, goals of care discussion with family) [ previous or external records, resulted lab(s)/test(s), ordered lab(s)/test(s), independent historian, independent test interpretation and other healthcare professional discussion] and described risk of complication, morbidity or mortality of management as documented Diagnoses Syncope and collapse R55 Acute kidney insufficiency N28.9 Hyponatremia E87.1 Sepsis A41.9 Elevated troponin R79.89 Pulmonary embolism I26.99 CLL (chronic lymphocytic leukemia) C91.10 Goals of care, counseling/discussion Z71.89 Hypertension I10
[2022-12-08 09:29] LABS: Thyroid Stimulating Hormone 0.91 uIU/mL (0.27-4.20)
[2022-12-08 09:36] LABS: Vitamin B12 481 pg/mL (232-1245)
[2022-12-08 09:37] LABS: D Dimer >= 20.00 ug/mLFEU (0-0.59)
[2022-12-08 09:47] LABS: Iron 105 ug/dL (59-158); Percent Saturation 56.1 % (20-50); Total Iron Binding Capacity 187 mcg/dl; Unsaturated Iron Binding 82 ug/dL (112-347)
[2022-12-08 10:09] LABS: LAB Peripheral Smear Sent for Review
[2022-12-08] MEDS: aspirin 81 mg EC Tablet PO (10:14)
[2022-12-08] MEDS: enoxaparin 100 mg/mL Syringe SUBCUT (10:14)
--- NOTE | 2022-12-08 11:40 | CT_ITS ---
WS: [id number] CTA OF THE CHEST WITH PULMONARY EMBOLISM PROTOCOL TECHNIQUE: High-resolution contrast enhanced CTA of the chest with coronal and sagittal reformatted i mages with pulmonary embolism protocol. MIP images are also reviewed. CLINICAL INFORMATION: Possible pe COMPARISON: None. DLP: 479.[address] scans at [facility] use at least one of these dose optimization techniques: automated e xposure control; mA and/or kV adjustment per patient size (includes targeted exams where dose is matc hed to clinical indication); or iterative reconstruction. FINDINGS: Proximal pulmonary arteries are normal. Multiple filling defects in the LEFT upper lobe segmental and subsegmental pulmonary arteries. Additional filling defects in the LEFT lower lobe and RIGHT lower l obe segmental and subsegmental pulmonary arteries compatible with acute pulmonary embolus. No signifi cant RIGHT heart strain. Normal caliber thoracic aorta. Coronary calcification. Tiny bilateral pleural effusions. Compressive atelectasis in the lung bases. Mild chronic emphysematous changes. A few nonspecific noncalcified nodules in the RIGHT upper lobe the largest measuring 7 mm. Subpleural opacity LEFT upper lobe at the lung apex. Moderate thoracic kyphosis with ankylosis thoracic spine. IMPRESSION: 1. Multiple filling defects in the segmental and subsegmental pulmonary arteries described above com patible with pulmonary embolus. 2. No significant RIGHT heart strain. 3. Tiny bilateral pleural effusions with compressive atelectasis in the lung bases. 4. Few noncalcified and subpleural nodules in the RIGHT upper lobe largest measuring 7 mm. Recommend 6-month chest CT follow-up. Notified Stone Robins MD at 12/08/2022 12:59 PM.
[2022-12-08] MEDS: iohexol 350 mg/mL 500 mL Btl (per mL) IV (12:09)
[2022-12-08] MEDS: ipratropium-albuterol 3 mL Neb INHALATION ×2 (13:30→20:43)
--- NOTE | 2022-12-08 13:48 | PC.NURSE ---
Pulmonary embolism noted on CT scan. Patient was given 100mg of Lovenox at 1014. Dr Robins instructed nurse to start heparin drip 12 hours past lovenox injection, which will be at 1015pm. Nurse will let shift supervisor film processing know to start that drip.
[2022-12-08 14:49] LABS: Adenovirus Not Detected (NOT DETECT); Chlamydia Pneumoniae Not Detected (NOT DETECT); Coronavirus 229E,HKU1,NL63,OC4 Not Detected (NOT DETECT); Human Metapneumovirus Not Detected (NOT DETECT); Human Rhinovirus/Enterovirus Not Detected (NOT DETECT); Influenza A Not Detected (NOT DETECT); Influenza A H1 Not Detected (NOT DETECT); Influenza A H1-2009 Not Detected (NOT DETECT); Influenza A H3 Not Detected (NOT DETECT); Influenza B Not Detected (NOT DETECT); Mycoplasma Pneumoniae Not Detected (NOT DETECT); Parainfluenza Virus Type 1 Not Detected (NOT DETECT); Parainfluenza Virus Type 2 Not Detected (NOT DETECT); Parainfluenza Virus Type 3 Not Detected (NOT DETECT); Parainfluenza Virus Type 4 Not Detected (NOT DETECT); Respiratory Syncytial Virus A Not Detected (NOT DETECT); Respiratory Syncytial Virus B Not Detected (NOT DETECT); SARS-COV-2 Not Detected (NOT DETECT)
[2022-12-08] MEDS: heparin drip 25,000 UNIT/500 ML PREMIX 26.93 UNIT IV (22:31)
[2022-12-09] VITALS (15 sets, daily range): BP systolic 119–149; BP diastolic 74–95; PULSE 86–110; RESP 16–25; TEMP 37.4–38.6; O2SAT 90–95
[2022-12-09] MEDS: ipratropium-albuterol 3 mL Neb INHALATION ×4 (02:33→20:17)
[2022-12-09] MEDS: azithromycin 500 MG in sodium chloride 0.9% 250 ML 250 MG IV (02:48)
[2022-12-09] MEDS: famotidine 20 mg/2 mL INJ IVP ×2 (02:48→15:35)
[2022-12-09] MEDS: cefTRIAXone 1,000 MG in sodium chloride 0.9% (plus) 50 ML 100 MG IV (02:48)
[2022-12-09 04:32] LABS: Basophils # 0.1 10^3/uL (0.0-0.1); Basophils % 0.3 %; Eosinophils % 0.1 %; Hematocrit 35.5 % (37-53); Lymphocytes % 86.8 %; Mean Corpuscular HGB Conc 32.4 g/dL (30-55); Mean Corpuscular Hemoglobin 30.9 pg (27-33); Mean Corpuscular Volume 95.4 fl (82-101); Mean Platelet Volume 10.9 fL (7.4-10.4); Monocytes # 0.4 10^3/uL (0.2-0.9); Monocytes % 1.2 %; Neutrophils % 9.5 %; Nucleated Red Blood Cells # 0.2 /100WBC; Nucleated Red Blood Cells % 0.6 %; Positive C 1; Positive M 1; Red Blood Count 3.72 10^6/uL (3.85-5.65); Red Cell Distribution Width 12.6 % (12.1-15.1)
[2022-12-09 04:45] LABS: Partial Thromboplastin Time 49.5 SECONDS (23.9-36.7)
[2022-12-09 04:50] LABS: Alanine Aminotransferase 28 U/L (0-41); Albumin Level 2.2 g/dL (3.5-5.2); Alkaline Phosphatase 291 U/L (40-130); Anion Gap 14.2 (5-19); Aspartate Amino Transferase 112 U/L (0-40); Blood Urea Nitrogen 22 mg/dL (8-23); Calcium 10.8 mg/dL (8.5-10.5); Carbon Dioxide 28 mmol/L (22-29); Chloride 101 mmol/L (98-107); Globulin 3.6 g/dL (1.3-4.6); Glucose 141 mg/dL (65-115); Osmolality Calculated 294 mOsm/kg (285-295); Potassium 4.2 mmol/L (3.5-5.1); Sodium 139 mmol/L (136-145); Total Bilirubin 0.3 mg/dL (0.15-1.2); Total Protein 5.8 g/dL (6.6-8.7)
[2022-12-09 05:08] LABS: Folate Level 5.5 ng/mL (4.5-32.2)
[2022-12-09 05:14] LABS: Estmated Average Glucose 166; Hemoglobin A1C 7.4 % (4.0-6.0)
[2022-12-09 05:19] LABS: White Blood Count 35.73 10^3/uL (3.29-11.43)
[2022-12-09 05:20] LABS: Platelet Count 27 10^3/cmm (157-399)
[2022-12-09 05:41] LABS: Chol HDL Ratio 4.92 mg/dL (1.0-5.00); Cholesterol 123 mg/dL (0-200); HDL Cholesterol 25 mg/dL (60-100); LDL Cholesterol Calculated 67 mg/dL (50-129); Magnesium 2.2 mg/dL (1.7-2.3); Triglycerides 155 mg/dL (0-150); VLDL Cholestrol Calculation 31 mg/dL (0-30)
[2022-12-09] MEDS: aspirin 81 mg EC Tablet PO (08:20)
[2022-12-09 09:27] LABS: ABG PCO2 40.3 mmHg (35-45); ABG PH Result 7.47 (7.35-7.45); Alveolar-Arterial Oxygen Gradi 3.5 mmHg (5-10); Arterial Blood Gas Hematocrit 35.8 % (42-52); Base Excess ABG 5.1 mmol/L (-2.0-2.0); Blood Gas Allen Test Pos; Blood Gas Sample Site Radial, right; Blood Gas Sample Type Arterial; Carboxyhemoglobin 1.7 %THgb (0.4-20.1); HCO3 ABG 29.3 mmol/L (22-26); HGB O2 Sat 93.6 % (95-100); Ionized Calcium Level - ABG 1.5 mmol/L (1.1-1.4); Methemoglobin 0.9 % (0.4-1.5); Oxygen Device NC; PO2 ABG 71.6 mmHg (80.0-100.0); Potassium Level - ABG 3.8 mmol/L (3.5-5.0); Total Hemoglobin 11.7 g/dL (14-18)
--- NOTE | 2022-12-09 10:05 | PC.CHAP ---
Pastoral Care Encounter/Spiritual Assessment Type of Contact [] Declined strainer cleaner visit [] Patient/Family/Request visit [] Outpatient visit [] Follow-up visit [] Physician referral [] Code/Alert [x] Routine visit [] Staff referral [] Actively dying [] Patient sleeping [] Family support [] [] Out of room [] Palliative care [] [x] Receiving care in room [] Pre-surgical visit [] Trauma [] Long length of stay [] ICU visit [] Other: Relational/Emotional Strength [x] Patient feels connected with others/family/visitors/staff [] Distress [] Loneliness/isolation [] Abandonment Spirituality of Patient [x] Person of Yris [] Attends Yarsani of their Yris [x] Believes in Prayer [] Reads Bible or Jainism materials [] There are Spiritual issues to be addressed Dat[employer]ower Consultant Interventions [x] Prayer [x] Active listening [x] Non-anxious presence [x] Spiritual/emotional support [] Crisis/trauma care [x] Spiritual counseling [] Bereavement support [] Provided bereavement packet [] Provided Bible/devotional materials [] Provided toy/stuffed animal, coloring book to patient or family member [] Provided Communion [] Anointing/[place] [] Salvation [x] Completed spiritual assessment [] Other: Impact on Illness or Injury [] Angry [] Fearful [] Anxious [] Often cries [] Exhaustion [] Unable to work [] Unable to attend sabianism [] Unable to walk/stand [] Unable to read [] Unable to drive [] Unable to eat/drink [] Unable to sleep [] Unable to be with family [] Patient intubated [] Other: Summary senior heart postive has a good attitude well go home Time spent with patient 10 mins
[2022-12-09] MEDS: sodium chloride 0.9% 1,000 ML 75 ML IV (13:29)
--- NOTE | 2022-12-09 14:10 | P.PN_ITS ---
Subjective Subjective: No acute events overnight. Today morning patient seen sitting up in bed with daughter at bedside. He is on 3 L of oxygen supplementation saturating more than 92%. Remains tachycardic but heart rate slightly better. Hemodynamically stable otherwise. Denies any nausea, vomiting, headache. Still appears to be slightly drowsy during examination but is AOx3. Blood work appreciated for a white count of 35,000, hemoglobin stable at 11.5, platelet count down to 27,000, CMP showing a stable creatinine of 1, no hyponatremia, no hyperkalemia, A1c of 7.4, AST of 112, alkaline phosphatase 291 Vitals/I&O/Wt Last Vital Signs Temp 98.5 F 12/08/22 13:50 Pulse 104 H 12/09/22 14:00 Resp 17 12/09/22 14:00 BP 119/83 12/09/22 12:00 Pulse Ox 95 12/09/22 14:00 O2 Del Method Nasal Cannula 12/09/22 14:00 O2 Flow Rate 3 12/09/22 14:00 12/08/22 12/09/22 12/09/22 22:59 06:59 14:59 Intake Total 1959 508.708 / 2468.708 1824.75 / 1824.75 Balance 1959 508.708 / 2468.708 1824.75 / 1824.75 Weight last 48 hrs Weight 96.162 kg Physical Exam Narrative: General: No acute distress, AO x3, drowsy, NC oxygen supplementation HEENT: PERRLA, pupils bilaterally equal and reactive, old traumatic dried blood on lower lip Chest: Bilateral normal vesicular breath sounds all over lung cristina with coarse crackles bilaterally in lower zone CVS: S1-S2 regular, no murmurs, no tachycardia, no gallops, no rubs Abdomen: Soft, nontender, no organomegaly, bowel sounds present, morbidly obese Neuro: No focal deficits, no facial deformity, AO x3, power 5/5 in all limbs lateral normal vesicular breath sounds over lung cristina Skin: OTHER: Data 12/09/22 04:18 12/09/22 04:18 Micro: Microbiology 12/07/22 22:36 Blood Culture - Preliminary Blood NEGATIVE TO DATE 12/07/22 22:31 Blood Culture - Preliminary Blood NEGATIVE TO DATE 12/07/22 22:10 Bacterial Antigens - Final Urine Kidney A&P Assessment and plan (1) Syncope and collapse: (2) Pulmonary embolism: (3) CLL (chronic lymphocytic leukemia): (4) Thrombocytopenia: (5) Acute kidney insufficiency: (6) Hyponatremia: (7) Sepsis: (8) Elevated troponin: (9) Goals of care, counseling/discussion: (10) Hypertension: Plan 77-year-old gentleman with past medical history of CLL, excision of melanoma of back presents to the hospital with recurrent falls secondary to syncope and c ollapse over last 1 week. Syncope and collapse: Patient is tachycardic, on new oxygen supplementation going up to 6 L, positive troponins with a negative delta on admission. Insetting of acute pulmonary embolism. Appreciate CTA results. Patient has significant pulmonary embolism without any concerns for right heart strain but is tachycardic requiring oxygen supplementation. He also has thrombocytopenia most likely in setting of CLL. Discussed in detail with the patient and patient's DPOA/daughter at bedside. We discussed that unfortunately patient needs anticoagulation because of significa nt pulmonary embolism but with significant thrombocytopenia he is also at the risk of catastrophic bleeding. Both patient and patient's daughter are understandable and agreeable with continuation of anticoagulation. Continue with heparin drip. We will plan to transition to oral Eliquis 10 mg twice daily for 7 days followed by 5 mg twice daily going forward. Physical therapy. Out of bed to chair. Patient would most likely need home O2 evaluation prior to discharge. Hypoxia: In setting of acute pulmonary embolism Sepsis: Present on admission. Ruled in with tachycardia, leukocytosis, target organ dysfunction with KATY and hyponatremia. Ruled out for now. Most likely above changes in setting of pulmonary embolism. We will switch from IV azithromycin and ceftriaxone to oral Augmentin in setting of recent excision of melanoma. Wound care as per outpatient directions. Continue with triple antibiotic ointment. KATY: Resolved. Continue with current IV fluids. Most likely in setting of dehydration along with losartan at home dose. Medical reconstruction done for nephrotoxic drugs. Hold off on losartan for now. Monitor BMP daily. High anion gap metabolic acidosis/hyponatremia: Most likely in setting of KATY. Resolved. Monitor daily. Elevated troponin: Most likely in setting of pulmonary embolism. Appreciate echocardiogram results with normal EF, room regional motion abnormali ty, grade 1 diastolic dysfunction, normal PASP. CLL: On review of labs from outpatient. It seems patient's baseline white count is around 19,000. Currently 36,000. Continue to monitor. Will ask patient to follow-up with his outpatient oncologist. Thrombocytopenia: Most likely in setting of baseline CLL. As above. CODE STATUS: Discussed in detail with patient at bedside. Daughters will be the DPOA. For now he would want to have chest compressions if needed but does not want ventilator. Changed to limited resuscitation. Famotidine for PUD prophylaxis Regular diet Heparin drip will also suffice for DVT prophylaxis. Attestations Medical Necessity Statement*: Requires further hospitalization for management syncope and collapse in setting of acute pulmonary embolism with ongoing significant thrombocytopenia in setting of chronic CLL Diagnoses Syncope and collapse R55 Pulmonary embolism I26.99 CLL (chronic lymphocytic leukemia) C91.10 Thrombocytopenia D69.6 Acute kidney insufficiency N28.9 Hyponatremia E87.1 Sepsis A41.9 Elevated troponin R79.89 Goals of care, counseling/discussion Z71.89 Hypertension I10
[2022-12-09] MEDS: heparin drip 25,000 UNIT/500 ML PREMIX 31 UNIT IV (15:36)
[2022-12-09] MEDS: amoxicillin-clav 875-125 mg Tablet 1 TAB PO (17:52)
[2022-12-09 18:20] LABS: Partial Thromboplastin Time 65.7 SECONDS (23.9-36.7)
[2022-12-09] MEDS: acetaminophen 325 mg Tablet 650 MG PO (20:10)
[2022-12-10] VITALS (24 sets, daily range): BP systolic 97–135; BP diastolic 52–81; PULSE 82–107; RESP 15–33; TEMP 36.6–37.7; O2SAT 90–95
[2022-12-10 01:22] LABS: Partial Thromboplastin Time 68.7 SECONDS (23.9-36.7)
--- NOTE | 2022-12-10 01:59 | PC.NURSE ---
PTT at 0037 68.7, per protocol no change to heparin drip.
[2022-12-10] MEDS: ipratropium-albuterol 3 mL Neb INHALATION ×4 (02:04→20:21)
[2022-12-10] MEDS: famotidine 20 mg/2 mL INJ IVP ×2 (02:17→14:17)
[2022-12-10] MEDS: sodium chloride 0.9% 1,000 ML 75 ML IV (02:17)
[2022-12-10 06:39] LABS: Basophils # 0.1 10^3/uL (0.0-0.1); Basophils % 0.2 %; Eosinophils % 0.1 %; Hematocrit 34.2 % (37-53); Lymphocytes # 29.3 10^3/uL (0.8-4.8); Lymphocytes % 88.5 %; Mean Corpuscular HGB Conc 31.6 g/dL (30-55); Mean Corpuscular Hemoglobin 30.7 pg (27-33); Mean Corpuscular Volume 97.2 fl (82-101); Mean Platelet Volume 10.3 fL (7.4-10.4); Monocytes # 0.4 10^3/uL (0.2-0.9); Monocytes % 1.1 %; Neutrophils # 2.82 10^3/uL (1.8-7.7); Neutrophils % 8.6 %; Nucleated Red Blood Cells # 0.3 /100WBC; Red Blood Count 3.52 10^6/uL (3.85-5.65); Red Cell Distribution Width 12.8 % (12.1-15.1)
[2022-12-10 06:49] LABS: Partial Thromboplastin Time 61.8 SECONDS (23.9-36.7)
[2022-12-10 06:54] LABS: Alanine Aminotransferase 25 U/L (0-41); Albumin Level 2.2 g/dL (3.5-5.2); Alkaline Phosphatase 240 U/L (40-130); Anion Gap 12.4 (5-19); Aspartate Amino Transferase 66 U/L (0-40); Blood Urea Nitrogen 20 mg/dL (8-23); Calcium 11.2 mg/dL (8.5-10.5); Carbon Dioxide 28 mmol/L (22-29); Chloride 103 mmol/L (98-107); Globulin 3.5 g/dL (1.3-4.6); Glucose 117 mg/dL (65-115); Osmolality Calculated 292 mOsm/kg (285-295); Potassium 4.4 mmol/L (3.5-5.1); Sodium 139 mmol/L (136-145); Total Bilirubin 0.4 mg/dL (0.15-1.2); Total Protein 5.7 g/dL (6.6-8.7)
[2022-12-10 07:11] LABS: Magnesium 1.9 mg/dL (1.7-2.3)
[2022-12-10 07:27] LABS: Platelet Count 19 10^3/cmm (157-399)
[2022-12-10 07:28] LABS: Slide Review Slide Review Perform
[2022-12-10] MEDS: aspirin 81 mg EC Tablet PO (08:04)
[2022-12-10] MEDS: amoxicillin-clav 875-125 mg Tablet 1 TAB PO (08:04)
[2022-12-10] MEDS: heparin drip 25,000 UNIT/500 ML PREMIX 31 UNIT IV (08:05)
--- NOTE | 2022-12-10 10:47 | XRR_ITS ---
PROCEDURE INFORMATION: Exam: XR Chest Exam date and time: 12/10/2022 10:56 AM Age: 77 years old Clinical indication: Condition or disease; Lung condition and disease; Pneumonia; Additional info: Pna TECHNIQUE: Imaging protocol: Radiologic exam of the chest. Views: 1 view. COMPARISON: CR (CHEST, ) 12/07/2022 8:34 PM FINDINGS: Lungs: There is patchy airspace disease at the right lung base and increased markings on the left as well. Pleural spaces: Unremarkable. No pleural effusion. No pneumothorax. Heart/Mediastinum: Unremarkable. No cardiomegaly. Bones/joints: Degenerative changes are noted in the bones. XR/XR chest 1V portable 40095 IMPRESSION: Basilar pneumonia.
--- NOTE | 2022-12-10 11:08 | PC.SOCIAL ---
IMM Update pg 2 of IMM updated and reviewed w/ patient. Copy provided and copy dated, initialed and placed in chart.
--- NOTE | 2022-12-10 11:15 | PC.SOCIAL ---
IMM Update pg 2 of IMM updated and reviewed w/ patient. Copy provided and Copy dated, initialed and placed in chart.
[2022-12-10] MEDS: vancomycin 1,250 MG/250 ML PIGGYBACK 250 MG IV ×2 (12:08→23:30)
--- NOTE | 2022-12-10 13:24 | USCV_ITS ---
Esteban Villalobos Age: 77 Gender: M : 1945 Exam Date: 12/10/2022 13:50 Ordering Phys: Stone Robins MD Technologist: Gulshan Simms [place] [facility] [facility] [place] Indication: Dvt PROCEDURES: Venous duplex imaging was performed in bilateral lower extremities. The following venous structures were evaluated: common femoral vein, profunda vein, proximal portion of the greater saphenous vein, superficial femoral vein, and the popliteal vein. Bilaterally, the common femoral, superficial femoral, profunda femoral, popliteal, posterior tibial, greater saphenous veins, and the peroneal trunk were identified and interrogated in the standard fashion. These veins were found to be easily compressible with spontaneous blood flow. No evidence of insufficiency or thrombus noted. Serial compression, augmentation maneuvers, and spectral Doppler flow evaluation were performed. FINDINGS: Normal 2-D Doppler and augmentation and compressibility throughout the lower extremity venous structures. Additional imaging through the proximal calf veins also reveals no thrombus. Limited evaluation of the greater saphenous vein is patent with no thrombus. There appears to be free fluid within the posterior area of the right knee and left knee. Free fluid vs bakers cyst. Patient recently had fall. CONCLUSIONS No evidence of right lower extremity DVT. No evidence of left lower extremity DVT. Small amount of fluid vs Bakers cyst in the popliteal fossa bilaterally Yousif Chan MD (Electronically Signed) Final Date: 10 December 2022 16:01 S
[2022-12-10 13:42] LABS: Reticulocyte % 0.5 % (0.5-2.0)
[2022-12-10 14:09] LABS: Partial Thromboplastin Time 54.3 SECONDS (23.9-36.7)
[2022-12-10] MEDS: piperacillin-tazobactam 3.375 GM in sodium chloride 0.9% (plus) 50 ML IV ×2 (14:17→20:22)
--- NOTE | 2022-12-10 15:58 | P.PN_ITS ---
Subjective Subjective: No acute events overnight. Patient denies any nausea, vomiting, headache. Today morning seen sitting up in chair with family at bedside. Patient is more awake and alert. Currently on room air saturating more than 90%. Tachycardia is improving. Blood work appreciated for a stable white count of 33,000, hemoglobin of 10.8, platelet count trending down to 19,000, CMP showing stable creatinine, AST/ALT of 66/25 which is improving, calcium of 11.2. Tmax in last 24 hours 101.4 Fahrenheit last night. 99.8 today morning. Vitals/I&O/Wt Last Vital Signs Temp 99.5 F 12/10/22 11:27 Pulse 106 H 12/10/22 15:13 Resp 18 12/10/22 15:05 BP 128/68 12/10/22 11:27 Pulse Ox 90 12/10/22 15:05 O2 Del Method Room Air 12/10/22 15:05 O2 Flow Rate 3 12/10/22 07:42 12/10/22 12/10/22 12/10/22 06:59 14:59 22:59 Intake Total 1680 / 4303.883 1255.45 / 1255.45 Balance 1680 / 4303.883 1255.45 / 1255.45 Physical Exam Narrative: General: No acute distress, AO x3, drowsy, NC oxygen supplementation HEENT: PERRLA, pupils bilaterally equal and reactive, old traumatic dried blood on lower lip Chest: Bilateral normal vesicular breath sounds all over lung cristina with coarse crackles bilaterally in lower zone CVS: S1-S2 regular, no murmurs, no tachycardia, no gallops, no rubs Abdomen: Soft, nontender, no organomegaly, bowel sounds present, morbidly obese Neuro: No focal deficits, no facial deformity, AO x3, power 5/5 in all limbs lateral normal vesicular breath sounds over lung cristina Skin: OTHER: Data 12/10/22 06:27 12/10/22 06:27 Micro: Microbiology 12/10/22 09:58 Blood Culture - Preliminary Blood SPECIMEN COLLECTED 12/10/22 09:50 Blood Culture - Preliminary Blood SPECIMEN COLLECTED A&P Assessment and plan (1) Syncope and collapse: (2) Pulmonary embolism: (3) CLL (chronic lymphocytic leukemia): (4) Thrombocytopenia: (5) Acute kidney insufficiency: (6) Hyponatremia: (7) Sepsis: (8) Elevated troponin: (9) Goals of care, counseling/discussion: (10) Hypertension: Plan 77-year-old gentleman with past medical history of CLL, excision of melanoma of back presents to the hospital with recurrent falls secondary to syncope and collapse over last 1 week. Syncope and collapse: Patient is tachycardic, on new oxygen supplementation going up to 6 L, positive troponins with a negative delta on admission. Insetting of acute pulmonary embolism. Appreciate CTA results. Currently on heparin drip for anticoagulation. Patient has worsening thrombocytopenia. We will have to discuss with outpatient oncologist and in-hospital oncologist and patient's family about risk of anticoagulation while having severe thrombocytopenia. We will plan for further anticoagulation after discussion with all 3. Physical therapy. Out of bed to chair. Patient would most likely need home O2 evaluation prior to discharge. Hypoxia: In setting of acute pulmonary embolism Sepsis: Present on admission. Ruled in with tachycardia, leukocytosis, target organ dysfunction with KATY and hyponatremia. Patient again febrile up to 101.4 Fahrenheit overnight. Recheck chest x-ray, urinalysis, respiratory viral panel, blood culture, sputum culture. As patient is immunocompromised given CLL for now we will restart IV vancomycin and Zosyn. Wound care as per outpatient directions. Continue with triple antibiotic ointment. Thrombocytopenia: Baseline platelet count with last check in August 2022 seems to be 220,000. Most likely in setting of CLL. Cannot rule out autoimmune disorder versus HIT. Check Reticulocyte count, LDH, haptoglobin. Discussed in detail with inpatient oncologist Dr. Garcia. Reviewed labs in detail. He is concerned about possible HIT along with autoimmune disorder. He is recommending of switching heparin drip to a different modality of anticoagulation and is agreeable with continuation of anticoagulation along with initiation of high-dose steroids. Discussed in detail with Dr. Hong. Discussed labs in detail. His recommendations are to follow-up the labs, not start the steroids even though there are concerns for autoimmune disorder and monitor platelet count and not to start on anticoagulation as it is a high risk of bleeding even though he has an ongoing PE as he is improving. Discussed different recommendations from poor oncologist in detail with the patient's daughter/DPOA at bedside. We discussed that patient does have significant thrombocytopenia and is at a higher risk of bleeding though he is also pretty prothrombotic given ongoing CLL and had significant pulmonary embolism with syncope and high oxygen requirement which seems to be improving now guaranteeing its need for further anticoagulation. Daughters verbalized understanding. We discussed unfortunately we are stuck in a difficult situation. They are agreeable for continuation of anticoagulation. They understand the bleeding risk. We will switch from heparin drip to Eliquis 10 mg twice daily. Transfuse 3 unit of platelets. Repeat CBC in evening after transfusion. We will plan for high- dose steroids as per repeat platelet count. KATY: Resolved. Continue with current IV fluids. Most likely in setting of dehydration along with losartan at home dose. Medical reconstruction done for nephrotoxic drugs. Hold off on losartan for now. Monitor BMP daily. High anion gap metabolic acidosis/hyponatremia: Most likely in setting of KATY. Resolved. Monitor daily. Elevated troponin: Most likely in setting of pulmonary embolism. Appreciate echocardiogram results with normal EF, room regional motion abnormality, grade 1 diastolic dysfunction, normal PASP. CLL: On review of labs from outpatient. It seems patient's baseline white count is around 19,000, platelet count 220,000. Further management as above. Will ask patient to follow-up with his outpatient oncologist. CODE STATUS: Discussed in detail with patient at bedside. Daughters will be the DPOA. For now he would want to have chest compressions if needed but does not want ventilator. Changed to limited resuscitation. Famotidine for PUD prophylaxis Regular diet Heparin drip will also suffice for DVT prophylaxis. Attestations Medical Necessity Statement*: Requires further hospitalization for management of syncope and collapse in setting of significant pulmonary embolism, severe thrombocytopenia in a patient with CLL Diagnoses Syncope and collapse R55 Pulmonary embolism I26.99 CLL (chronic lymphocytic leukemia) C91.10 Thrombocytopenia D69.6 Acute kidney insufficiency N28.9 Hyponatremia E87.1 Sepsis A41.9 Elevated troponin R79.89 Goals of care, counseling/discussion Z71.89 Hypertension I10
[2022-12-10 16:46] LABS: Add Urine Microscopic? YES; Bilirubin Urine Neg (Negative); Blood Urine 3+ (Negative); Glucose Urine UA Norm (Normal); Ketones Urine Negative (Negative); Leukocyte Esterase Urine Negative (Negative); Nitrate Urine Negative (Negative); Protein Urine Neg (Negative); Specific Gravity, Urine 1.015 (1.005-1.030); Urine Appearance Clear (CLEAR); Urine Color Yellow (Yellow); Urobilinogen Urine Norm (Negative); pH Urine 6 (5-7)
[2022-12-10 16:48] LABS: Add Urine Culture? Yes; Bacteria Urine 2+ /hpf
[2022-12-10 16:58] LABS: Lactate Dehydrogenase > 1000 U/L (135-225)
[2022-12-10 17:50] LABS: Adenovirus Not Detected (NOT DETECT); Chlamydia Pneumoniae Not Detected (NOT DETECT); Coronavirus 229E,HKU1,NL63,OC4 Not Detected (NOT DETECT); Human Metapneumovirus Not Detected (NOT DETECT); Human Rhinovirus/Enterovirus Not Detected (NOT DETECT); Influenza A Not Detected (NOT DETECT); Influenza A H1 Not Detected (NOT DETECT); Influenza A H1-2009 Not Detected (NOT DETECT); Influenza A H3 Not Detected (NOT DETECT); Influenza B Not Detected (NOT DETECT); Mycoplasma Pneumoniae Not Detected (NOT DETECT); Parainfluenza Virus Type 1 Not Detected (NOT DETECT); Parainfluenza Virus Type 2 Not Detected (NOT DETECT); Parainfluenza Virus Type 3 Not Detected (NOT DETECT); Parainfluenza Virus Type 4 Not Detected (NOT DETECT); Respiratory Syncytial Virus A Not Detected (NOT DETECT); Respiratory Syncytial Virus B Not Detected (NOT DETECT); SARS-COV-2 Not Detected (NOT DETECT)
[2022-12-10] MEDS: sodium chloride 0.9% 100 mL Bag 50 ML IV ×2 (19:56→22:04)
[2022-12-10] MEDS: enoxaparin 100 mg/mL Syringe SUBCUT (20:25)
[2022-12-11] VITALS (13 sets, daily range): BP systolic 119–132; BP diastolic 57–75; PULSE 84–105; RESP 17–26; TEMP 36.6–37.7; O2SAT 87–96
[2022-12-11] MEDS: ipratropium-albuterol 3 mL Neb INHALATION ×2 (01:33→07:46)
[2022-12-11 02:30] LABS: Hematocrit 33.6 % (37-53); Mean Corpuscular HGB Conc 30.4 g/dL (30-55); Mean Corpuscular Hemoglobin 30.7 pg (27-33); Mean Corpuscular Volume 101.2 fl (82-101); Mean Platelet Volume 10.7 fL (7.4-10.4); Platelet Count 103 10^3/cmm (157-399); Red Blood Count 3.32 10^6/uL (3.85-5.65); Red Cell Distribution Width 12.7 % (12.1-15.1)
[2022-12-11] MEDS: famotidine 20 mg/2 mL INJ IVP ×2 (02:38→14:05)
[2022-12-11 02:53] LABS: Alanine Aminotransferase 24 U/L (0-41); Albumin Level 2.1 g/dL (3.5-5.2); Alkaline Phosphatase 199 U/L (40-130); Anion Gap 14.2 (5-19); Aspartate Amino Transferase 52 U/L (0-40); Blood Urea Nitrogen 24 mg/dL (8-23); Calcium 10.6 mg/dL (8.5-10.5); Carbon Dioxide 26 mmol/L (22-29); Chloride 98 mmol/L (98-107); Globulin 3.8 g/dL (1.3-4.6); Glucose 113 mg/dL (65-115); Osmolality Calculated 283 mOsm/kg (285-295); Potassium 4.2 mmol/L (3.5-5.1); Sodium 134 mmol/L (136-145); Total Bilirubin 0.5 mg/dL (0.15-1.2); Total Protein 5.9 g/dL (6.6-8.7)
[2022-12-11 03:03] LABS: Magnesium 2.2 mg/dL (1.7-2.3)
[2022-12-11 03:20] LABS: Slide Review Slide Review Perform
[2022-12-11 03:21] LABS: Absolute Neutrophil 4.1 10^3/cmm (1.4-6.5); Absolute Segmented Neutrophil 3.2 10/cmm (1.6-7.1); Eosinophils 0 %; Lymphocytes 85 %; Monocytes Absolute 0.3 10^3/cmm (0.1-0.6); Platelet Estimate Decreased (Normal); Segmented Neutrophils 10 %; Total Cells Counted 100 (0-100)
[2022-12-11] MEDS: piperacillin-tazobactam 3.375 GM in sodium chloride 0.9% (plus) 50 ML IV ×2 (03:35→12:52)
[2022-12-11] MEDS: aspirin 81 mg EC Tablet PO (08:20)
[2022-12-11] MEDS: enoxaparin 100 mg/mL Syringe SUBCUT (08:20)
[2022-12-11] MEDS: vancomycin 1,250 MG/250 ML PIGGYBACK 250 MG IV (11:34)
--- NOTE | 2022-12-11 11:56 | P.DS_ITS ---
Discharge Providers Date of Admission: 12/08/22 02:18 Date of Discharge: December 11, 2022 Attending Provider at Admission: Shirlene Lewis MD Attending Provider at Discharge: Stone Robins MD Primary Care Provider: Leobardo Blanco Diagnoses at Discharge Discharge Diagnosis (1) Syncope and collapse: Status: Acute (2) Pulmonary embolism: Status: Acute (3) CLL (chronic lymphocytic leukemia): Status: Acute (4) Thrombocytopenia: Status: Acute (5) Acute kidney insufficiency: Status: Acute (6) Hyponatremia: Status: Acute (7) Sepsis: Status: Acute (8) Elevated troponin: Status: Acute (9) Goals of care, counseling/discussion: Status: Acute (10) Hypertension: Status: Acute Reason for Visit Reason for Visit: weakness, hypotension Hospital Course Hospital Course Esteban Villalobos is a 77 year old male with history of hypertension, CLL on expectant treatment who recently underwent wide excision of 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 As per the patient he has been having almost daily falls for last 1 week.? Falls were not preceded or followed by any aura, denies any nausea vomiting, chest pressure, chest pain along the symptoms, any seizure-like activity.? Denies having any similar episodes in the past.? Yesterday he was mowing his lawn when he thinks he tripped. His baseline labs are found to be with white count of around 19,000 platelet count of around 220,000 which was found to be in August 2022. On admission patient was found to have white count of more than 40,000 with platelet count of 46,000 with 26% atypical lymphocytes and tube placement cells. Patient was admitted to the hospital further evaluation and management. On admission he was on 6 L oxygen supplementation along with tachycardia. On admission patient was also found to be in acute renal failure with hyperkalemia which was treated with IV fluids. He was found to have elevated D-dimer. CTA was done which was consistent with segmental and subsegmental PE. He was started on anticoagulation with heparin d rip. Care was complicated by worsening thrombocytopenia. Patient's care was discussed in detail with his outpatient oncologist and inpatient oncologist. Recommendations from inpatient oncologist were switching heparin drip to a different modality of anticoagulation and is agreeable with continuation of anticoagulation along with initiation of high-dose steroids with concerns for HIT versus possible autoimmune conversion. Discussed in detail with Dr. Hong.? Discussed labs in detail.? His recommendations are to follow-up the labs, not start the steroids even though t here are concerns for autoimmune disorder and monitor platelet count and not to start on anticoagulation as it is a high risk of bleeding even though he has an ongoing PE as he is improving. Discussed different recommendations from poor oncologist in detail with the patient's daughter/DPOA at bedside.? We discussed that patient does have significant thrombocytopenia and is at a higher risk of bleeding though he is also pretty prothrombotic given ongoing CLL and had significant pulmonary embolism with syncope and high oxygen requirement which seems to be improving now guaranteeing its need for further anticoagulation. Eventually patient was treated with switching from heparin to Eliquis, tra nsfusing 3 unit of platelet. Patient responded well to the treatment and his platelet counts improved from 19,000 being lowest to 103,000 on discharge. Patient's oxygen requirements also trended down. Patient did have episodes of fever during hospitalization for which multiple infectious work-up including cultures, urinalysis, respiratory viral panel, chest x-ray was done and has been so far negative other than possible bibasilar atelectasis. He has been discharged hemodynamically stable condition on oral Eliquis 10 mg twice daily for next 5 days followed by 5 mg twice daily. He is being discharged on oral Augmentin and Levaquin for next 5 days. He is to advised in detail to follow-up with his oncologist as an outpatient and have been told his next appointment is on coming Wednesday 12/13. He is advised to repeat CBC on his visit with his oncologist. Patient was seen by physical therapist during hospitalization who advised patient for home health. Home health has been arranged. Home O2 evaluation has been done prior to discharge. Physical Exam Narrative: General: No acute distress, AO x3, drowsy, NC oxygen supplementation HEENT: PERRLA, pupils bilaterally equal and reactive, old traumatic dried blood on lower lip Chest: Bilateral normal vesicular breath sounds all over lung cristina with coarse crackles bilaterally in lower zone CVS: S1-S2 regular, no murmurs, no tachycardia, no gallops, no rubs Abdomen: Soft, nontender, no organomegaly, bowel sounds present, morbidly obese Neuro: No focal deficits, no facial deformity, AO x3, power 5/5 in all limbs lateral normal vesicular breath sounds over lung cristina Skin: OTHER: Discharge Data Studies Completed and Pending Completed Studies During Hospitalization Category Date Time Status CT cervical spin wo con* [id number] Stat Cat Scan 12/07/22 20:[address] head wo con* [id number] Stat Cat Scan 12/07/22 20:16 Completed CTA chest [CT angio chest PE protcl 48000] Routine Cat Scan 12/08/22 11:40 Completed XR chest 1V portable [id number] Routine Exams 12/10/22 10:47 Completed XR chest 1V portable [id number] Stat Exams 12/07/22 20:16 [place] [id number] Routine Ultrasound 12/10/22 13:24 Completed CV. echo complete* [id number] Routine Ultrasound 12/08/22 08:43 Completed Pending at discharge Category Date Time Status CA echo doppler complete Routine Exams 12/08/22 02:21 Stop Req Blood Culture Stat Lab 12/07/22 22:36 Results Blood Culture Stat Lab 12/10/22 09:58 Results Complete Crossmatch Routine Lab 12/10/22 18:09 Results Heparin Induced Thrombocytopen Routine Lab 12/10/22 13:45 Received Leukocyte Reduced RBC Routine Lab 12/10/22 18:09 Results MRSA [Methicillin Resistant S.aureu] Routine Lab 12/08/22 08:41 Received Platelets Leuko-Reduced Routine Lab 12/10/22 18:09 Results Sputum Culture and Gram Stain Stat Lab 12/10/22 09:00 Uncollected Type and Screen Routine Lab 12/10/22 18:09 Results Urine Culture Routine Lab 12/10/22 14:47 Results Vancomycin Trough Timed Lab 12/11/22 22:15 Ordered Radiology Impressions Cervical Spine CT 12/07/22 20:16 IMPRESSION: No acute findings. Head CT 12/07/22 20:16 IMPRESSION: No acute intracranial abnormality. Chest X-Ray 12/10/22 10:47 IMPRESSION: Basilar pneumonia. Echocardiogram: CONCLUSIONS ?Normal left ventricular size and systolic function, EF 59 %. No ?regional wall motion abnormalities. Grade I/IV diastolic ?dysfunction (abnormal relaxation filling pattern), normal to ?mildly elevated filling pressures. ?Thickened aortic valve. Trace aortic valve regurgitation. ?Trace tricuspid valve regurgitation. ? Estimated pulmonary ?artery peak systolic pressure within normal limit ?There is no pericardial effusion. ?There are no intracardiac masses. ?No previous study is available for comparison. ?Dr Brittanie Carrizales MD [facility] ?(Electronically Signed) ?Final Date:? ? ? 08 December 2022 ? 11:13 CTA chest: IMPRESSION: 1.? Multiple filling defects in the segmental and subsegmental pulmonary arteries described above compatible with pulmonary embolus. 2.? No significant RIGHT heart strain. 3.? Tiny bilateral pleural effusions with compressive atelectasis in the lung ba ses. 4.? Few noncalcified and subpleural nodules in the RIGHT upper lobe largest measuring 7 mm. Recommend 6-month chest CT follow-up. Notified Stone Robins MD at 12/08/2022 12:59 PM. Venous Duplex CONCLUSIONS ?No evidence of right lower extremity DVT. ?No evidence of left lower extremity DVT. ?Small amount of fluid vs Bakers cyst in the popliteal fossa ?bilaterally ?Yousif Chan MD ?(Electronically Signed) ?Final Date:? ? ? 10 December 2022 Microbiology 12/10/22 14:47 Urine,Clean Catch Urine Culture - Preliminary 12/10/22 09:58 Blood Blood Culture - Preliminary NEGATIVE TO DATE 12/10/22 09:50 Blood Blood Culture - Preliminary NEGATIVE TO DATE 12/07/22 22:36 Blood Blood Culture - Preliminary NEGATIVE TO DATE 12/07/22 22:31 Blood Blood Culture - Preliminary NEGATIVE TO DATE 12/07/22 22:10 Urine Kidney Bacterial Antigens - Final Laboratory Results WBC 31.80 10^3/uL (3.29-11.43) H* 12/11/22 01:30 RBC 3.32 10^6/uL (3.85-5.65) L 12/11/22 01:30 Hgb 10.20 g/dL (11.27-16.99) L 12/11/22 01:30 Hct 33.6 % (37-53) L 12/11/22 01:30 MCV 101.2 fl (82-101) H 12/11/22 01:30 MCH 30.7 pg (27-33) 12/11/22 01:30 MCHC 30.4 g/dL (30-55) 12/11/22 01:30 RDW 12.7 % (12.1-15.1) 12/11/22 01:30 Plt Count 103 10^3/cmm (157-399) L D 12/11/22 01:30 MPV 10.7 fL (7.4-10.4) H 12/11/22 01:30 Neut % (Auto) 8.6 % 12/10/22 06:27 Lymph % (Auto) Not Reportable 12/11/22 01:30 [place] % (Auto) Not Reportable 12/11/22 01:30 Eos % (Auto) 0.1 % 12/10/22 06:27 Baso % (Auto) 0.2 % 12/10/22 06:27 Reticulocyte % (Auto) 0.5 % (0.5-2.0) 12/10/22 06:27 Neut # (Auto) 2.82 10^3/uL (1.8-7.7) 12/10/22 06:27 Lymph # (Auto) Not Reportable 12/11/22 01:30 [place] # (Auto) Not Reportable 12/11/22 01:30 Eos # (Auto) 0.0 10^3/uL (0.0-0.8) 12/10/22 06:27 Baso # (Auto) 0.1 10^3/uL (0.0-0.1) 12/10/22 06:27 Nucleated RBC % (auto) 1.0 % 12/10/22 06:27 Total Counted 100 (0-100) 12/11/22 01:30 Atypical Lymphs % 0.0 % (0-5) 12/11/22 01:30 Absolute Neutrophils 4.1 10^3/cmm (1.4-6.5) 12/11/22 01:30 Segmented Neutrophils 10 % 12/11/22 01:30 Abs Segm Neuts (Man) 3.2 10/cmm (1.6-7.1) 12/11/22 01:30 Band Neutrophils 3.0 % 12/11/22 01:30 Abs Band Neuts (Man) 1.0 10^3/cmm (0.0-1.2) 12/11/22 01:30 Absolute Lymphocytes 27.0 10^3/cmm (1.2-3.4) H 12/11/22 01:30 Lymphocytes (Manual) 85 % 12/11/22 01:30 Monocytes (Manual) 1.0 % 12/11/22 01:30 Absolute Monocytes 0.3 10^3/cmm (0.1-0.6) 12/11/22 01:30 Eosinophils (Manual) 0 % 12/11/22 01:30 Absolute Eosinophils 0.0 10^3/cmm (0.0-0.7) 12/11/22 01:30 Basophils (Manual) 0.0 % 12/11/22 01:30 Absolute Basophils 0.0 10^3/cmm (0.0-0.2) 12/11/22 01:30 Metamyelocytes 1.0 % 12/11/22 01:30 Myelocytes 2.0 % 12/07/22 19:00 Promyelocytes 1.0 % 12/07/22 19:00 Nucleated RBCs 1.0 /100WBC (0-1) 12/07/22 19:00 Nucleated RBCs # 0.3 /100WBC 12/10/22 06:27 Smudge Cells 2+ H 12/07/22 19:00 Platelet Estimate Decreased (Normal) 12/11/22 01:30 Peripher Smr Path Cons Sent for review 12/08/22 02:18 Haptoglobin 157.0 mg/L (30-200) 12/10/22 06:27 PT 14.30 SECONDS (12.1-14.9) 12/07/22 19:00 INR 1.08 (0.8-1.2) 12/07/22 19:00 APTT 54.3 SECONDS (23.9-36.7) H 12/10/22 13:45 D-Dimer >= 20.00 ug/mLFEU (0-0.59) H 12/08/22 02:18 Specimen Type Arterial 12/09/22 09:15 Sample Site Radial, right 12/09/22 09:15 ABG pH 7.47 (7.35-7.45) H 12/09/22 09:15 ABG pCO2 40.3 mmHg (35-45) 12/09/22 09:15 ABG pO2 71.6 mmHg (80.0-100.0) L 12/09/22 09:15 ABG HCO3 29.3 mmol/L (22-26) H 12/09/22 09:15 ABG O2 Saturation 96.0 12/09/22 09:15 ABG Base Excess 5.1 mmol/L (-2.0-2.0) H 12/09/22 09:15 Champ Test Pos 12/09/22 09:15 A-a O2 Gradient 3.5 mmHg (5-10) L 12/09/22 09:15 Hematocrit 35.8 % (42-52) L 12/09/22 09:15 Hgb O2 Saturation 93.6 % (95-100) L 12/09/22 09:15 Carboxyhemoglobin 1.7 %THgb (0.4-20.1) 12/09/22 09:15 Methemoglobin 0.9 % (0.4-1.5) 12/09/22 09:15 Total Hemoglobin 11.7 g/dL (14-18) L 12/09/22 09:15 Sodium 139.0 mmol/L (131-143) 12/09/22 09:15 Potassium 3.8 mmol/L (3.5-5.0) 12/09/22 09:15 Glucose 171.0 mg/dL (70-115) H 12/09/22 09:15 Ionized Calcium 1.5 mmol/L (1.1-1.4) H 12/09/22 09:15 O2 Delivery Device Nc 12/09/22 09:15 O2 Liters/Min 3.0 % 12/09/22 09:15 Restaurant Shift Leader ID Hira 12/09/22 09:15 Sodium 134 mmol/L (136-145) L 12/11/22 01:30 Potassium 4.2 mmol/L (3.5-5.1) 12/11/22 01:30 Chloride 98 mmol/L (98-107) 12/11/22 01:30 Carbon Dioxide 26 mmol/L (22-29) 12/11/22 01:30 Anion Gap 14.2 (5-19) 12/11/22 01:30 BUN 24 mg/dL (8-23) H 12/11/22 01:30 Creatinine 0.9 mg/dL (0.7-1.2) 12/11/22 01:30 GFR Calculation Not Reportable 12/11/22 01:30 Glucose 113 mg/dL (65-115) 12/11/22 01:30 POC Glucose 133 mg/dL (70-110) H 12/07/22 20:43 Estimat Average Glucose 166 12/09/22 04:18 Hemoglobin A1c 7.4 % (4.0-6.0) H 12/09/22 04:18 Calculated Osmolality 283 mOsm/kg (285-295) L 12/11/22 01:30 Lactic Acid 5.1 mmol/L (0.5-2.2) H* 12/07/22 20:05 Lactic Acid (Sepsis) 2.0 mmol/L (0.5-2.2) 12/08/22 00:28 Calcium 10.6 mg/dL (8.5-10.5) H 12/11/22 01:30 Phosphorus 4.8 mg/dL (2.5-4.5) H 12/08/22 02:18 Magnesium 2.2 mg/dL (1.7-2.3) 12/11/22 01:30 Iron 105 ug/dL (59-158) 12/08/22 02:18 TIBC 187 mcg/dl 12/08/22 02:18 % Saturation 56.1 % (20-50) H 12/08/22 02:18 Unsat Iron Binding 82 ug/dL (112-347) L 12/08/22 02:18 Total Bilirubin 0.5 mg/dL (0.15-1.2) 12/11/22 01:30 AST 52 U/L (0-40) H 12/11/22 01:30 ALT 24 U/L (0-41) 12/11/22 01:30 Alkaline Phosphatase 199 U/L (40-130) H 12/11/22 01:30 Lactate Dehydrogenase > 1000 U/L (135-225) H 12/10/22 06:27 Troponin T Baseline 256 ng/L (0-15) H* 12/07/22 19:00 Troponin T 120 Minute 211.3 ng/L (0-15) H 12/07/22 22:31 Delta Troponin T -44.7 ABS# (0-10) L 12/07/22 22:31 Troponin T Hi Sens 6Hr 211.9 ng/L (0-15) H 12/08/22 02:18 Troponin T Hi Sens 6Hr Delta -44.1 ng/L (0-12) L 12/08/22 02:18 NT-Pro-B Natriuret Pep 575 pg/mL (0-450) H 12/08/22 02:18 Total Protein 5.9 g/dL (6.6-8.7) L 12/11/22 01:30 Albumin 2.1 g/dL (3.5-5.2) L 12/11/22 01:30 Globulin 3.8 g/dL (1.3-4.6) 12/11/22 01:30 Triglycerides 155 mg/dL (0-150) H 12/09/22 04:18 Cholesterol 123 mg/dL (0-200) 12/09/22 04:18 LDL Cholesterol, Calc 67 mg/dL (50-129) 12/09/22 04:18 Total VLDL Cholesterol 31 mg/dL (0-30) H 12/09/22 04:18 HDL Cholesterol 25 mg/dL (60-100) L 12/09/22 04:18 Cholesterol/HDL Ratio 4.92 mg/dL (1.0-5.00) 12/09/22 04:18 Vitamin B12 481 pg/mL (232-1245) 12/08/22 02:18 Folate 5.5 ng/mL (4.5-32.2) 12/09/22 04:18 Procalcitonin 1.50 ng/mL (0-0.5) H 12/10/22 06:27 TSH 0.91 uIU/mL (0.27-4.20) 12/08/22 02:18 Prolactin 15.45 ng/mL (4.0-15.2) H 12/07/22 19:00 Urine Color Yellow (Yellow) 12/10/22 14:47 Urine Appearance Clear (CLEAR) 12/10/22 14:47 Urine pH 6 (5-7) 12/10/22 14:47 Ur Specific [place] 1.015 (1.005-1.030) 12/10/22 14:47 Urine Protein Neg (Negative) 12/10/22 14:47 Urine Glucose (UA) Norm (Normal) 12/10/22 14:47 Urine Ketones Negative (Negative) 12/10/22 14:47 Urine Blood 3+ (Negative) H 12/10/22 14:47 Urine Nitrate Negative (Negative) 12/10/22 14:47 Urine Bilirubin Neg (Negative) 12/10/22 14:47 Urine Urobilinogen Norm mg/dL (Negative) 12/10/22 14:47 Ur Leukocyte Esterase Negative (Negative) 12/10/22 14:47 Urine RBC None /hpf (0-2) 12/10/22 14:47 Urine WBC None /hpf (0-5) 12/10/22 14:47 Ur Squamous Epith Cells None /hpf (0-5) 12/10/22 14:47 Ur Transition Epith Cell 0-4 /hpf 12/07/22 22:10 Amorphous Sediment Not Reportable 12/10/22 14:47 Urine Bacteria 2+ /hpf (NONE) H 12/10/22 14:47 Hyaline Casts 0-4 /lpf H 12/07/22 22:10 Urine Mucus 2+ /hpf 12/07/22 22:10 Nasal Influ A H1 2009 PCR Not detected (NOT DETECT) 12/10/22 09:13 Urine Opiates Screen Negative ng/mL (Negative) 12/07/22 22:10 Ur Barbiturates Screen Negative ng/mL (Negative) 12/07/22 22:10 Ur Phencyclidine Scrn Negative ng/mL (Negative) 12/07/22 22:10 Ur Amphetamines Screen Negative ng/mL (Negative) 12/07/22 22:10 U Benzodiazepines Scrn Negative ng/mL (Negative) 12/07/22 22:10 Urine Cocaine Screen Negative ng/mL (Negative) 12/07/22 22:10 U Marijuana (THC) Screen Negative ng/mL (Negative) 12/07/22 22:10 Adenovirus (PCR) Not detected (NOT DETECT) 12/10/22 09:13 C. pneumoniae DNA (PCR) Not detected (NOT DETECT) 12/10/22 09:13 Coronavirus 229E (PCR) Not detected (NOT DETECT) 12/10/22 09:13 Human Metapneumovir PCR Not detected (NOT DETECT) 12/10/22 09:13 Influenza A (H1) PCR Not detected (NOT DETECT) 12/10/22 09:13 Influenza A (H3) PCR Not detected (NOT DETECT) 12/10/22 09:13 Influenza Type A (PCR) Not detected (NOT DETECT) 12/10/22 09:13 Influenza Type B (PCR) Not detected (NOT DETECT) 12/10/22 09:13 M. pneumoniae (PCR) Not detected (NOT DETECT) 12/10/22 09:13 Parainfluenza 1 (PCR) Not detected (NOT DETECT) 12/10/22 09:13 Parainfluenza 2 (PCR) Not detected (NOT DETECT) 12/10/22 09:13 Parainfluenza 3 (PCR) Not detected (NOT DETECT) 12/10/22 09:13 Parainfluenza 4 (PCR) Not detected (NOT DETECT) 12/10/22 09:13 RSV Type A (PCR) Not detected (NOT DETECT) 12/10/22 09:13 RSV Type B (PCR) Not detected (NOT DETECT) 12/10/22 09:13 Entero/Rhino (PCR) Not detected (NOT DETECT) 12/10/22 09:13 SARS-CoV-2 (PCR) Not detected (NOT DETECT) 12/10/22 09:13 Blood Type A Positive 12/10/22 18:09 Rho(D) Type Positive 12/10/22 18:09 Antibody Screen Negative 12/10/22 18:09 Crossmatch See Detail 12/10/22 18:09 Vitals Last Vital Signs Temp 99.8 F H 12/11/22 11:06 Pulse 98 12/11/22 11:06 Resp 21 H 12/11/22 11:06 BP 119/57 12/11/22 11:06 Pulse Ox 96 12/11/22 11:06 O2 Del Method Nasal Cannula 12/11/22 11:06 O2 Flow Rate 2 12/11/22 07:54 Discharge Plan Discharge Patient Disposition: Home Condition: Stable Prescriptions: New Eliquis 5 mg Tablet 10 mg PO BID@0900,2100 Qty: 75 0RF Rx Instructions: 10 twice daily for next 5 days then 5 mg twice daily levofloxacin 500 mg tablet 500 mg PO Q24H 5 Days Qty: 5 0RF pantoprazole [Protonix] 40 mg tablet,delayed release (DR/EC) 40 mg PO QAM Qty: 30 0RF amoxicillin-pot clavulanate 875-125 mg tablet 1 tab PO BID Qty: 10 0RF Continued aspirin [Aspir-81] 81 mg Tablet,Delayed Release (Dr/Ec) 81 mg PO DAILY acetaminophen 325 mg Tablet 650 mg PO QID PRN (Reason: Pain) Discontinued losartan 50 mg tablet 50 mg PO DAILY doxycycline hyclate 100 mg capsule 100 mg PO BID azithromycin 250 mg tablet 250 mg PO DAILY Discharge Orders: Discharge Order (Routine); Ordered 12/11/22 Ordered By: Stone Robins Other Ambulatory Orders: DME: Oxygen (Order) Timeframe: 6 Months Location: None Selected Ordered By: Stone Robins Referrals: Leobardo Blanco [Primary Care Provider] - (Please call Dr. Blanco's Office on Tuesday at [phone] to schedule a follow up appointment. Thank you.) Patient Instructions: Amoxicillin (By mouth) (Amoxicot, Amoxil, Amoxil Pediatric, Trimox), Levofloxacin (By mouth) (Levaquin, Levaquin Leva-davina), Pantoprazole (By mouth) (Protonix), Apixaban (By mouth) (Eliquis), Pulmonary Em bolism (DC), Syncope (DC), Opioid Safety Activity Restrictions/Additional Instructions: Please continue take oral Eliquis 10 mg twice daily for next 5 days followed by 5 mg twice daily. You will be on 2 antibiotics including Augmentin and Levaquin for next 5 days. Please follow-up with oncologist as an outpatient and have been told his next appointment is on coming Wednesday 12/13. He is advised to repeat CBC on his visit with his oncologist. Discharge Attestations Time Spent in Discharge Care*: greater than 30 min Specific Discharge Activities: educating patient, educating and/or supporting family/caregiver, discussing with pcp/other providers, discussing with case ma kelly/social workers/dc planners, documenting/other paperwork and evaluating patient/reviewing data Status at Discharge: Cognitive status at discharge: cognitively intact , Behavioral status at discharge: cooperative , Functional status at discharge: uses cane/walker , Overall status at discharge: patient is progressing back to baseline Quality Metrics Clinical Quality Measures [ Venous Thromboembolism { Contraindication to Overlap Therapy: None; Overlap threrpy ordered; VTE Discharge Education: Education about anticoagulant therapy/Care Notes given; Deep Vein Thrombosis/Pulmonary Embolism Present on Adm ission: Yes; Contraindication to Pharm VTE Prophylaxis: None; Pharmacological prophylaxis given;}] Coding Level of Care Code 17414 Total time (in minutes) for Discharge: 60 Diagnoses Syncope and collapse R55 Pulmonary embolism I26.99 CLL (chronic lymphocytic leukemia) C91.10 Thrombocytopenia D69.6 Acute kidney insufficiency N28.9 Hyponatremia E87.1 Sepsis A41.9 Elevated troponin R79.89 Goals of care, counseling/discussion Z71.89 Hypertension I10
[2022-12-15 01:04] LABS: Heparin Induced Platelet AB NEGATIVE (NEGATIVE); Patient O.D 0.103
[2022-12-16 02:48] LABS: UFH High Dose, 100 IU/ML 0 % release; UFH Low Dose, 0.1 IU/ML 0 % release; UFH Low Dose, 0.5 IU/ML 0 % release; UFH SRA Result NEGATIVE (NEGATIVE)
== END 2022-12-11 16:00 | disposition home health service (06) | DRG 175 ==
LOC: ER 23:27 → CSU 12-08 00:26
PROVIDERS: Admitting Provider Internal Medicine; Emergency Provider Internal Medicine; PCP Family Medicine; Visit Provider Student in an Organized Health Care Education/Training Program
DX: I26.94 Multiple subsegmental thrombotic pulmonary emboli without acute cor pulmonale (principal); J18.9 Pneumonia, unspecified organism; C91.10 Chronic lymphocytic leukemia of B-cell type not having achieved remission; N17.9 Acute kidney failure, unspecified; I50.30 Unspecified diastolic (congestive) heart failure; E87.20 Acidosis, unspecified; D84.89 Other immunodeficiencies; W00.0XXA Fall on same level due to ice and snow, initial encounter; Z91.81 History of falling; C43.59 Malignant melanoma of other part of trunk; E87.5 Hyperkalemia; Z79.82 Long term (current) use of aspirin; I11.0 Hypertensive heart disease with heart failure; Z98.890 Other specified postprocedural states; Z20.822 Contact with and (suspected) exposure to COVID-19; R55 Syncope and collapse; R79.89 Other specified abnormal findings of blood chemistry; E86.0 Dehydration
CPT/HCPCS: 36415; 36416; 36430; 70450; 71045; 71275; 72125; 80051; 80053; 80061; 80306; 80503; 81001; 81015; 82330; 82607; 82746; 82805; 82962; 83010; 83036; 83540; 83550; 83605; 83615; 83735; 83880; 84100; 84145; 84146; 84443; 84484; 85007; 85025; 85045; 85378; 85610; 85730; 86403; 86850; 86900; 86920; 87040; 87086; 87486; 87581; 87633; 87641; 93005; 93306; 93970; 94640; 94660; 94664; 94760; 96365; 96372; 96376; 97110; 97116; 97161; 97530; 99285; J0456; J0696; J1644; J1650; J2543; J3370; J3490; J7030; J7050; P9035; P9055; Q9967